=== PATIENT | female | born 1950 | race Caucasian/White ===

== ENCOUNTER → 2016-08-01 | Outpatient (CLI) | payer MEDICARE ==
[~2016-08-01] MED LIST: /ESOM40CA PO; ASTE137S; DOXY150C PO; MOME50SP; NICO21PAT EXT; PRAV40TA2 PO; PRED10TA2 PO; TYLE325T5 PO; VENTAER INH; ZANT150T PO; spiriva INH
--- NOTE | 2016-08-01 15:22 | REP ---
MRI BRAIN WITHOUT CONTRAST: HISTORY: Headache. A single punctate focus of increased signal intensity on T2-weighted images is present in the subcortical white matter of the left parietal lobe. There is no intraparenchymal hemorrhage, infarct, mass or midline shift. The ventricular system is normal in appearance. The sella turcica is partially empty. There is no extracerebral collection. Retention cysts are present in the maxillary sinus. A 4 mm cyst is present in the right side of the nasopharynx. IMPRESSION: There is a single punctate focus of increased signal intensity in the subcortical white matter of the left parietal lobe. This is a nonspecific finding. Signed by Sunny Vu MD 08/01/2016 03:29 P
== END ==
LOC: M RAD 13:08
PROVIDERS: ATTEND Family Medicine
DX: R51 Headache (principal); R42 Dizziness and giddiness

== ENCOUNTER → 2017-01-23 | Outpatient (CLI) | payer MEDICARE ==
--- NOTE | 2017-01-23 14:36 | REPMRS ---
Patient History The patient states she had a clinical breast exam in 01/2017. Patient is postmenopausal and has history of vulva cancer at age 64. Family history of breast cancer in mother at age 62. Benign stereotactic core biopsy of both breasts, 2001. Digital Woman Screen Mammo: January 23, 2017 - Exam #: [id number] Bilateral CC and MLO view(s) were taken. Technologist: Corinne Yanez, Technologist Prior study comparison: December 14, 2015, digital woman screen mammo performed at [facility] to [facility]. December 13, 2014, digital woman screen mammo performed at [facility]. September 23, 2013, digital woman screen mammo performed at [facility] to [facility]. FINDINGS: There are scattered fibroglandular densities. There has been no change in the appearance of the mammogram from the prior studies. There is a mild amount of scattered fibroglandular density which is fairly symmetric. There is no interval development of dominant mass, architectural distortion, or clustered microcalcification suggestive of malignancy. ASSESSMENT: BI-RADS/ACR category 1 mammogram. Negative. Recommendation Routine screening mammogram in 1 year (for women over age 40). This mammogram was interpreted with the aid of an FDA-approved computer-aided dectection system. Electronically Signed By: Tariq Gilbert MD 01/23/17 [id number]
== END ==
LOC: M WHC 13:31
PROVIDERS: ATTEND Nurse Practitioner Family
DX: Z12.31 Encounter for screening mammogram for malignant neoplasm of breast (principal); Z78.0 Asymptomatic menopausal state
CPT/HCPCS: G0202; G0463

== ENCOUNTER → 2017-06-08 | Outpatient (CLI) | payer MEDICARE | LOC: M RAD 13:09 | DX: I70.213 Atherosclerosis of native arteries of extremities with intermittent claudication, bilateral legs (principal); F17.218 Nicotine dependence, cigarettes, with other nicotine-induced disorders | CPT/HCPCS: 93979 ==

== ENCOUNTER → 2017-06-25 | Outpatient (CLI) | payer MEDICARE ==
[~2017-06-25] MED LIST changes: -/ESOM40CA PO; -ASTE137S; -DOXY150C PO; +HEPARIN 1,000 UNITS/ML 10ML VIAL (FOR RADIOLOGY& DIALYSIS ONLY) As Ordered; +ISOVUE-300 61% 50ML VIAL (Q9967) As Ordered; +LIDOCAINE 2% MDV 20 ML VIAL As Ordered; +MIDAZOLAM INJ 2 MG/2 ML VIAL (J2250) As Ordered; -MOME50SP; -NICO21PAT EXT; -PRAV40TA2 PO; -PRED10TA2 PO; +PROTAMINE SULF INJ 50 MG/5 ML VIAL (J2720) As Ordered; -TYLE325T5 PO; -VENTAER INH; -ZANT150T PO; +fentaNYL 100 MCG/2 ML INJECTION (J3010) As Ordered; -spiriva INH
== END | disposition home or self-care (01) ==
LOC: M IRPRO 07:44
DX: I70.213 Atherosclerosis of native arteries of extremities with intermittent claudication, bilateral legs (principal); I70.0 Atherosclerosis of aorta
CPT/HCPCS: 37221

== ENCOUNTER → 2017-08-07 | Outpatient (CLI) | payer MEDICARE | LOC: M RAD 07:23 | DX: I73.9 Peripheral vascular disease, unspecified (principal); Z95.820 Peripheral vascular angioplasty status with implants and grafts | CPT/HCPCS: 76775 ==

== ENCOUNTER 2017-08-27 09:57 | Day surgery (SDC) | payer MEDICARE ==
[2017-08-27] MEDS: PROPARACAINE 0.5% OPHTH SOL 15ML OS (10:15)
[2017-08-27] MEDS ORDERED: LIDOCAINE 1% MDV 20ML VIAL SQ (10:15)
[2017-08-27] MEDS: PHENYLEPHRINE 2.5% OPHTH SOL 2ML OS (10:20)
[2017-08-27] MEDS: TROPICAMIDE 1% OPHTH SOLN 2ML OS (10:25)
[2017-08-27] MEDS: OFLOXACIN 0.3 % (OCUFLOX) OPTH SOL 5ML OS (10:30)
[2017-08-27] MEDS ORDERED: MIDAZOLAM INJ 2 MG/2 ML VIAL (J2250) As Ordered (12:19)
[2017-08-27] MEDS ORDERED: fentaNYL 100 MCG/2 ML INJECTION (J3010) As Ordered (12:19)
[2017-08-27] MEDS ORDERED: TETRACAINE 0.5% OPHTH SOLN 4ML As Ordered ×2 (12:23→12:55)
[2017-08-27] MEDS: POVIDONE-IODINE 5% OPHTH PREP SOL 30ML As Ordered (12:56)
[2017-08-27] MEDS: DUOVISC (0.50ML VISCOAT/0.55ML PROVISC) OPHTH KIT As Ordered (12:56)
[2017-08-27] MEDS: BALANCED SALT IRRIGATION SOLUTION 500ML BAG (FOR OR EYE MACHINE) As Ordered (12:56)
[2017-08-27] MEDS: LIDOCAINE 0.75%/EPINEPHRINE 0.025% IN BSS 1ML SYR INTRACAMERAL (OR ONLY) As Ordered ×2 (12:57)
[2017-08-27] MEDS: CEFUROXIME 1MG/0.1ML INTRACAMERAL INJ As Ordered (12:57)
== END 2017-08-27 13:15 | disposition home or self-care (01) ==
LOC: M SDC 09:57
DX: H25.12 Age-related nuclear cataract, left eye (principal); I10 Essential (primary) hypertension; E78.5 Hyperlipidemia, unspecified; K21.9 Gastro-esophageal reflux disease without esophagitis; K22.70 Barrett's esophagus without dysplasia; J44.9 Chronic obstructive pulmonary disease, unspecified; F17.210 Nicotine dependence, cigarettes, uncomplicated; Z79.02 Long term (current) use of antithrombotics/antiplatelets; Z79.899 Other long term (current) drug therapy; Z88.8 Allergy status to other drugs, medicaments and biological substances
CPT/HCPCS: 66984

== ENCOUNTER → 2018-02-17 | Outpatient (REF) | payer MEDICARE ==
[2018-02-17 12:35] LABS: ANION GAP 7 MEQ/L (8-16); BLOOD UREA NITROGEN 14 MG/DL (7-18); CALCIUM LEVEL 9.4 MG/DL (8.8-10.2); CARBON DIOXIDE LEVEL 28 MEQ/L (21-32); CHLORIDE LEVEL 107 MEQ/L (98-107); CREATININE FOR GFR 0.72 MG/DL (0.55-1.30); GLOMERULAR FILTRATION RATE > 60.0 (>45); GLUCOSE, FASTING 115 MG/DL (70-100); POTASSIUM SERUM 4.4 MEQ/L (3.5-5.1); SODIUM LEVEL 142 MEQ/L (136-145)
== END ==
LOC: M SFHCPLAZ 09:16
DX: J45.901 Unspecified asthma with (acute) exacerbation (principal)
CPT/HCPCS: 80048

== ENCOUNTER → 2018-02-19 | Outpatient (CLI) | payer MEDICARE | LOC: M RAD 06:49 | DX: I73.9 Peripheral vascular disease, unspecified (principal) | CPT/HCPCS: 93925 ==

== ENCOUNTER 2018-02-20 20:13 | Emergency (ER) | payer MEDICARE ==
[2018-02-20 21:29] LABS: BASO % 0.2 % (0.0-1.0); EOS % 0.1 % (0.0-3.0); HEMATOCRIT 40.8 % (36.0-47.0); HEMOGLOBIN 13.7 g/dl (12.0-15.5); IMMATURE GRANULOCYTE % 0.5 % (0-3.0); LYMPH # 1.3 10^3/uL (1.5-4.5); LYMPH % 14.1 % (24.0-44.0); MEAN CORPUSCULAR HEMOGLOBIN 29.7 pg (27.0-33.0); MEAN CORPUSCULAR HGB CONC 33.6 g/dl (32.0-36.5); MEAN CORPUSCULAR VOLUME 88.3 fl (80.0-96.0); MONO # 0.6 10^3/uL (0.0-0.8); MONO % 6.6 % (0.0-5.0); NEUTROPHILS # 7.5 10^3/uL (1.8-7.7); NEUTROPHILS % 78.5 % (36.0-66.0); PLATELET COUNT, AUTOMATED 295 10^3/uL (150-450); RED BLOOD COUNT 4.62 10^6/uL (4.00-5.40); RED CELL DISTRIBUTION WIDTH 13.9 % (11.5-14.5); WHITE BLOOD COUNT 9.5 10^3/uL (4.0-10.0)
[2018-02-20] MEDS: IPRATROPIUM 0.5MG/ALBUTEROL 2.5MG INH SOL UD 3ML (DUONEB)(J7620) NEB ×4 (21:54→23:27)
[2018-02-20 21:55] LABS: INFLUENZA A AMPLIFICATION NEGATIVE (NEGATIVE); INFLUENZA B AMPLIFICATION NEGATIVE (NEGATIVE)
[2018-02-20 21:58] LABS: LACTIC ACID SEPSIS PROTOCOL 1.4 MMOL/L (0.4-2.0)
[2018-02-20 22:04] LABS: ALBUMIN 3.8 GM/DL (3.2-5.2); ALBUMIN/GLOBULIN RATIO 0.97 (1.00-1.93); ALKALINE PHOSPHATASE 66 U/L (45-117); ALT/SGPT 19 U/L (12-78); ANION GAP 7 MEQ/L (8-16); AST/SGOT 13 U/L (7-37); BILIRUBIN,DIRECT < 0.1 MG/DL (0.0-0.2); BILIRUBIN,TOTAL 0.3 MG/DL (0.2-1.0); BLOOD UREA NITROGEN 13 MG/DL (7-18); CALCIUM LEVEL 8.7 MG/DL (8.8-10.2); CARBON DIOXIDE LEVEL 27 MEQ/L (21-32); CHLORIDE LEVEL 108 MEQ/L (98-107); CPK CREATINE PHOSPHOKINASE 257 U/L (26-192); CREATININE FOR GFR 0.73 MG/DL (0.55-1.30); GLOMERULAR FILTRATION RATE > 60.0 (>45); GLUCOSE, FASTING 99 MG/DL (70-100); MB/CK RELATIVE INDEX 1.01 (< OR =4); NT-PRO BNP 132 PG/ML (<125); POTASSIUM SERUM 4.1 MEQ/L (3.5-5.1); SODIUM LEVEL 142 MEQ/L (136-145); THYROID STIMULATING HORMONE 0.715 uIU/ML (0.358-3.740); THYROXINE (T4) 11.7 UG/DL (4.5-12.0); TOTAL PROTEIN 7.7 GM/DL (6.4-8.2); TROPONIN I < 0.02 NG/ML (< 0.10)
[2018-02-20] MEDS: predniSONE 20 MG TAB PO (22:10)
[2018-02-20] MEDS: NORCO 5/325MG TABLET (BULK FOR ED) PO (23:26)
[2018-02-20] MEDS: guaiFENesin ER 600 MG TAB PO (23:26)
== END 2018-02-20 23:33 | disposition home or self-care (01) ==
LOC: M ED 20:13
DX: J44.1 Chronic obstructive pulmonary disease with (acute) exacerbation (principal); Z79.899 Other long term (current) drug therapy; Z88.8 Allergy status to other drugs, medicaments and biological substances; F17.210 Nicotine dependence, cigarettes, uncomplicated
CPT/HCPCS: 71046

== ENCOUNTER 2018-03-14 03:55 | Inpatient (IN) | payer MEDICARE ==
[2018-03-14 04:19] LABS: BASO # 0.1 10^3/uL (0.0-0.2); BASO % 0.6 % (0.0-1.0); EOS # 1.4 10^3/uL (0.0-0.50); EOS % 16.3 % (0.0-3.0); HEMATOCRIT 42.4 % (36.0-47.0); HEMOGLOBIN 14.2 g/dl (12.0-15.5); IMMATURE GRANULOCYTE % 0.5 % (0-3.0); LYMPH # 1.2 10^3/uL (1.5-4.5); LYMPH % 13.8 % (24.0-44.0); MEAN CORPUSCULAR HEMOGLOBIN 29.5 pg (27.0-33.0); MEAN CORPUSCULAR HGB CONC 33.5 g/dl (32.0-36.5); MEAN CORPUSCULAR VOLUME 88.1 fl (80.0-96.0); MONO # 0.5 10^3/uL (0.0-0.8); NEUTROPHILS # 5.5 10^3/uL (1.8-7.7); NEUTROPHILS % 62.8 % (36.0-66.0); PLATELET COUNT, AUTOMATED 312 10^3/uL (150-450); RED BLOOD COUNT 4.81 10^6/uL (4.00-5.40); RED CELL DISTRIBUTION WIDTH 13.7 % (11.5-14.5); VENOUS BASE EXCESS -2.9 (-2.0-2.0); VENOUS O2 SATURATION 94.2 % (60.0-80.0); VENOUS PARTIAL PRESSURE CO2 34.1 mmHg (38.0-50.0); VENOUS PARTIAL PRESSURE O2 70.6 mmHg (30.0-50.0); VENOUS PH 7.407 UNITS (7.330-7.430); WHITE BLOOD COUNT 8.8 10^3/uL (4.0-10.0)
[2018-03-14] MEDS: IPRATROPIUM 0.5MG/ALBUTEROL 2.5MG INH SOL UD 3ML (DUONEB)(J7620) NEB ×8 (04:31→20:00)
[2018-03-14] MEDS: dexameTHASONE 20 MG/5 ML VIAL (J1100) IV (04:31)
[2018-03-14] MEDS: IPRATROPIUM 0.02% SOLN 0.5MG/2.5 ML NEB INH (04:59)
[2018-03-14] MEDS: ALBUTEROL SULFATE 2.5 MG/0.5 ML INH NEB SOLN NEB (04:59)
[2018-03-14 05:01] LABS: ABG BASE EXCESS -0.8 (-2.0-2.0); ABG HCO3 23.7 MEQ/L (22.0-26.0); ABG O2 SATURATION 98.9 % (95.0-99.0); ABG PARTIAL PRESSURE CO2 38.9 mmHg (35.0-45.0); ABG PARTIAL PRESSURE O2 135.2 mmHg (75.0-100.0); ABG STANDARD HCO3 23.9 MEQ/L (22.0-26.0); ABG TOTAL CO2 24.9 MEQ/L (23.0-31.0); ABG pH (ARTERIAL) 7.403 UNITS (7.350-7.450)
[2018-03-14 05:17] LABS: ANION GAP 6 MEQ/L (8-16); BLOOD UREA NITROGEN 12 MG/DL (7-18); CALCIUM LEVEL 9.3 MG/DL (8.8-10.2); CARBON DIOXIDE LEVEL 27 MEQ/L (21-32); CHLORIDE LEVEL 106 MEQ/L (98-107); CPK CREATINE PHOSPHOKINASE 172 U/L (26-192); CREATININE FOR GFR 0.69 MG/DL (0.55-1.30); GLOMERULAR FILTRATION RATE > 60.0 (>45); GLUCOSE, FASTING 129 MG/DL (70-100); MB/CK RELATIVE INDEX 2.09 (< OR =4); POTASSIUM SERUM 4.5 MEQ/L (3.5-5.1); SODIUM LEVEL 139 MEQ/L (136-145); TROPONIN I < 0.02 NG/ML (< 0.10)
[2018-03-14] MEDS ORDERED: ONDANSETRON 4MG/2ML VIAL (J2405) IV (06:15)
[2018-03-14] MEDS ORDERED: BISACODYL 10 MG SUPP PR (06:15)
[2018-03-14] MEDS ORDERED: ISOVUE-370 76% 100ML VIAL (Q9967) As Ordered (06:26)
[2018-03-14] MEDS: HEPARIN SOD (PORCINE) 5000 UNITS/ML VIAL SC ×3 (06:32→21:28)
[2018-03-14] MEDS: AZITHROMYCIN INJ 500 MG, VIAL MATE ADAPTER 1 EACH in D5W 250 ML IV (06:32)
[2018-03-14] MEDS: methylPREDNISolone INJ 125 MG/2 ML VIAL (J2930) IV ×3 (06:33→21:28)
[2018-03-14 06:57] LABS: BASO % 0.3 % (0.0-1.0); EOS # 0.7 10^3/uL (0.0-0.50); HEMATOCRIT 41.2 % (36.0-47.0); HEMOGLOBIN 13.9 g/dl (12.0-15.5); IMMATURE GRANULOCYTE % 0.3 % (0-3.0); LYMPH # 0.6 10^3/uL (1.5-4.5); LYMPH % 5.9 % (24.0-44.0); MEAN CORPUSCULAR HEMOGLOBIN 29.4 pg (27.0-33.0); MEAN CORPUSCULAR HGB CONC 33.7 g/dl (32.0-36.5); MEAN CORPUSCULAR VOLUME 87.1 fl (80.0-96.0); MONO # 0.2 10^3/uL (0.0-0.8); MONO % 1.5 % (0.0-5.0); NEUTROPHILS # 8.3 10^3/uL (1.8-7.7); PLATELET COUNT, AUTOMATED 305 10^3/uL (150-450); RED BLOOD COUNT 4.73 10^6/uL (4.00-5.40); RED CELL DISTRIBUTION WIDTH 13.7 % (11.5-14.5); WHITE BLOOD COUNT 9.8 10^3/uL (4.0-10.0)
[2018-03-14 07:16] LABS: ERYTHROCYTE SEDIMENTATION RATE 50 mm/hr (0-30)
[2018-03-14 07:28] LABS: CPK CREATINE PHOSPHOKINASE 157 U/L (26-192); MB/CK RELATIVE INDEX 2.23 (< OR =4); TROPONIN I < 0.02 NG/ML (< 0.10)
[2018-03-14 07:32] LABS: ALBUMIN 4.1 GM/DL (3.2-5.2); ALBUMIN/GLOBULIN RATIO 1.21 (1.00-1.93); ALKALINE PHOSPHATASE 59 U/L (45-117); ALT/SGPT 21 U/L (12-78); ANION GAP 9 MEQ/L (8-16); AST/SGOT 12 U/L (7-37); BILIRUBIN,TOTAL 0.5 MG/DL (0.2-1.0); BLOOD UREA NITROGEN 12 MG/DL (7-18); CALCIUM LEVEL 9.3 MG/DL (8.8-10.2); CARBON DIOXIDE LEVEL 22 MEQ/L (21-32); CHLORIDE LEVEL 106 MEQ/L (98-107); CHOLESTEROL LEVEL 266 MG/DL (<200); CHOLESTEROL RISK RATIO 3.546 (<5); CREATININE FOR GFR 0.63 MG/DL (0.55-1.30); GLOMERULAR FILTRATION RATE > 60.0 (>45); GLUCOSE, FASTING 137 MG/DL (70-100); HDL CHOLESTEROL 75 MG/DL (>40); LDL CHOLESTEROL 171 MG/DL (<100); NON-HDL-C 191 MG/DL; POTASSIUM SERUM 4.3 MEQ/L (3.5-5.1); SODIUM LEVEL 137 MEQ/L (136-145); THYROID STIMULATING HORMONE 0.601 uIU/ML (0.358-3.740); TOTAL PROTEIN 7.5 GM/DL (6.4-8.2); TRIGLYCERIDES LEVEL 99 MG/DL (<150)
[2018-03-14 07:33] LABS: INFLUENZA A AMPLIFICATION NEGATIVE (NEGATIVE); INFLUENZA B AMPLIFICATION NEGATIVE (NEGATIVE)
[2018-03-14] MEDS: SYMBICORT 160/4.5MCG INHALER 6GM INH ×2 (08:50→20:41)
[2018-03-14] MEDS: PANTOPRAZOLE 40MG TAB (PROTONIX) PO (09:50)
[2018-03-14] MEDS ORDERED: SLF 3 ML SYR IV (10:00)
[2018-03-14] MEDS: SLF 3 ML SYR IV ×2 (13:48→21:28)
[2018-03-15] MEDS: IPRATROPIUM 0.5MG/ALBUTEROL 2.5MG INH SOL UD 3ML (DUONEB)(J7620) NEB ×4 (01:48→20:00)
[2018-03-15] MEDS: SLF 3 ML SYR IV ×3 (04:56→21:09)
[2018-03-15 05:21] LABS: HEMATOCRIT 41.1 % (36.0-47.0); HEMOGLOBIN 13.1 g/dl (12.0-15.5); MEAN CORPUSCULAR HEMOGLOBIN 28.7 pg (27.0-33.0); MEAN CORPUSCULAR HGB CONC 31.9 g/dl (32.0-36.5); MEAN CORPUSCULAR VOLUME 90.1 fl (80.0-96.0); PLATELET COUNT, AUTOMATED 335 10^3/uL (150-450); RED BLOOD COUNT 4.56 10^6/uL (4.00-5.40); RED CELL DISTRIBUTION WIDTH 13.6 % (11.5-14.5); WHITE BLOOD COUNT 9.9 10^3/uL (4.0-10.0)
[2018-03-15] MEDS: AZITHROMYCIN INJ 500 MG, VIAL MATE ADAPTER 1 EACH in D5W 250 ML IV (05:22)
[2018-03-15] MEDS: HEPARIN SOD (PORCINE) 5000 UNITS/ML VIAL SC ×3 (05:22→21:07)
[2018-03-15] MEDS: methylPREDNISolone INJ 125 MG/2 ML VIAL (J2930) IV ×3 (05:22→21:06)
[2018-03-15 05:53] LABS: ANION GAP 9 MEQ/L (8-16); BLOOD UREA NITROGEN 17 MG/DL (7-18); CALCIUM LEVEL 9.4 MG/DL (8.8-10.2); CARBON DIOXIDE LEVEL 26 MEQ/L (21-32); CHLORIDE LEVEL 104 MEQ/L (98-107); CREATININE FOR GFR 0.98 MG/DL (0.55-1.30); GLOMERULAR FILTRATION RATE > 60.0 (>45); GLUCOSE, FASTING 159 MG/DL (70-100); POTASSIUM SERUM 3.9 MEQ/L (3.5-5.1); SODIUM LEVEL 139 MEQ/L (136-145)
[2018-03-15] MEDS: ACETAMINOPHEN TAB 650MG DOSE (2X325MG) PO ×2 (06:42→17:53)
[2018-03-15] MEDS: PANTOPRAZOLE 40MG TAB (PROTONIX) PO (08:13)
[2018-03-15] MEDS: SYMBICORT 160/4.5MCG INHALER 6GM INH ×2 (08:24→21:00)
[2018-03-15] MEDS: guaiFENesin ER 600 MG TAB PO (21:06)
[2018-03-15] MEDS: NICOTINE 7 MG/24 HR TRANSDERMAL TD (21:08)
[2018-03-16] MEDS: IPRATROPIUM 0.5MG/ALBUTEROL 2.5MG INH SOL UD 3ML (DUONEB)(J7620) NEB ×4 (02:00→19:54)
[2018-03-16] MEDS: HEPARIN SOD (PORCINE) 5000 UNITS/ML VIAL SC ×3 (05:35→21:16)
[2018-03-16] MEDS: ACETAMINOPHEN TAB 650MG DOSE (2X325MG) PO ×2 (05:35→19:58)
[2018-03-16] MEDS: methylPREDNISolone INJ 125 MG/2 ML VIAL (J2930) IV ×3 (05:36→21:16)
[2018-03-16] MEDS: AZITHROMYCIN INJ 500 MG, VIAL MATE ADAPTER 1 EACH in D5W 250 ML IV (05:36)
[2018-03-16] MEDS: SLF 3 ML SYR IV ×3 (05:36→21:16)
[2018-03-16] MEDS: SYMBICORT 160/4.5MCG INHALER 6GM INH ×2 (05:59→19:54)
[2018-03-16] MEDS: guaiFENesin ER 600 MG TAB PO ×2 (08:37→19:58)
[2018-03-16] MEDS: PANTOPRAZOLE 40MG TAB (PROTONIX) PO (08:37)
[2018-03-16] MEDS: PREVNAR 13 VACCINE SYRINGE (CPT CODE:90670) IM (08:38)
[2018-03-16] MEDS: NICOTINE 7 MG/24 HR TRANSDERMAL TD (19:58)
[2018-03-17] MEDS: IPRATROPIUM 0.5MG/ALBUTEROL 2.5MG INH SOL UD 3ML (DUONEB)(J7620) NEB ×4 (01:05→13:12)
[2018-03-17] MEDS: ACETAMINOPHEN TAB 650MG DOSE (2X325MG) PO ×2 (04:00→09:29)
[2018-03-17] MEDS: AZITHROMYCIN INJ 500 MG, VIAL MATE ADAPTER 1 EACH in D5W 250 ML IV (05:19)
[2018-03-17] MEDS: SLF 3 ML SYR IV (05:20)
[2018-03-17] MEDS: HEPARIN SOD (PORCINE) 5000 UNITS/ML VIAL SC (05:20)
[2018-03-17] MEDS: methylPREDNISolone INJ 125 MG/2 ML VIAL (J2930) IV (05:20)
[2018-03-17] MEDS: SYMBICORT 160/4.5MCG INHALER 6GM INH (07:48)
[2018-03-17] MEDS: guaiFENesin ER 600 MG TAB PO (09:29)
[2018-03-17] MEDS: PANTOPRAZOLE 40MG TAB (PROTONIX) PO (09:29)
== END 2018-03-17 13:55 | disposition home or self-care (01) | DRG 192 ==
LOC: M PCU 03-17 12:59 → M ED 03:55 → M ED INP 06:11 → M PCU 09:41
DX: J44.1 Chronic obstructive pulmonary disease with (acute) exacerbation (principal); K22.70 Barrett's esophagus without dysplasia; F17.210 Nicotine dependence, cigarettes, uncomplicated; M51.36 Other intervertebral disc degeneration, lumbar region; E78.5 Hyperlipidemia, unspecified; Z99.81 Dependence on supplemental oxygen; Z79.899 Other long term (current) drug therapy; Z88.8 Allergy status to other drugs, medicaments and biological substances

== ENCOUNTER → 2018-04-05 | Outpatient (CLI) | payer MEDICARE ==
[2018-04-05 07:43] LABS: CHOLESTEROL LEVEL 226 MG/DL (<200); CHOLESTEROL RISK RATIO 3.373 (<5); HDL CHOLESTEROL 67 MG/DL (>40); LDL CHOLESTEROL 129 MG/DL (<100); NON-HDL-C 159 MG/DL; TRIGLYCERIDES LEVEL 152 MG/DL (<150)
[2018-04-05 10:34] LABS: ESTIMATED AVERAGE GLUCOSE 148 MG/DL (60-110); HEMOGLOBIN A1c 6.8 %
== END ==
LOC: M LAB 06:39
DX: Z13.1 Encounter for screening for diabetes mellitus (principal); E78.2 Mixed hyperlipidemia; Z79.899 Other long term (current) drug therapy
CPT/HCPCS: 83036

== ENCOUNTER → 2018-04-19 | Outpatient (CLI) | payer MEDICARE ==
[2018-04-19 10:07] LABS: BASO % 0.4 % (0.0-1.0); EOS # 0.1 10^3/uL (0.0-0.50); EOS % 0.9 % (0.0-3.0); HEMOGLOBIN 13.9 g/dl (12.0-15.5); IMMATURE GRANULOCYTE % 0.5 % (0-3.0); LYMPH # 1.6 10^3/uL (1.5-4.5); LYMPH % 29.7 % (24.0-44.0); MEAN CORPUSCULAR HEMOGLOBIN 29.5 pg (27.0-33.0); MEAN CORPUSCULAR HGB CONC 33.1 g/dl (32.0-36.5); MEAN CORPUSCULAR VOLUME 89.2 fl (80.0-96.0); MONO # 0.5 10^3/uL (0.0-0.8); MONO % 8.7 % (0.0-5.0); NEUTROPHILS # 3.3 10^3/uL (1.8-7.7); NEUTROPHILS % 59.8 % (36.0-66.0); PLATELET COUNT, AUTOMATED 304 10^3/uL (150-450); RED BLOOD COUNT 4.71 10^6/uL (4.00-5.40); RED CELL DISTRIBUTION WIDTH 14.5 % (11.5-14.5); WHITE BLOOD COUNT 5.5 10^3/uL (4.0-10.0)
[2018-04-19 10:33] LABS: ALBUMIN 3.8 GM/DL (3.2-5.2); ALBUMIN/GLOBULIN RATIO 1.19 (1.00-1.93); ALKALINE PHOSPHATASE 57 U/L (45-117); ALT/SGPT 19 U/L (12-78); ANION GAP 6 MEQ/L (8-16); AST/SGOT 15 U/L (7-37); BILIRUBIN,TOTAL 0.6 MG/DL (0.2-1.0); BLOOD UREA NITROGEN 14 MG/DL (7-18); CALCIUM LEVEL 8.8 MG/DL (8.8-10.2); CARBON DIOXIDE LEVEL 29 MEQ/L (21-32); CHLORIDE LEVEL 107 MEQ/L (98-107); CREATININE FOR GFR 0.71 MG/DL (0.55-1.30); GLOMERULAR FILTRATION RATE > 60.0 (>45); GLUCOSE, FASTING 96 MG/DL (70-100); POTASSIUM SERUM 4.3 MEQ/L (3.5-5.1); SODIUM LEVEL 142 MEQ/L (136-145)
[2018-04-19 10:36] LABS: CREATININE, URINE 25.6 MG/DL; MALB URINE SIEMENS 6.4 MG/L
== END ==
LOC: M LAB 09:21
DX: Z01.818 Encounter for other preprocedural examination (principal); M20.12 Hallux valgus (acquired), left foot; M79.672 Pain in left foot; E11.9 Type 2 diabetes mellitus without complications
CPT/HCPCS: 80053

== ENCOUNTER → 2018-04-19 | Outpatient (CLI) | payer MEDICARE | LOC: M LAB 09:22 | DX: E11.9 Type 2 diabetes mellitus without complications (principal) ==

== ENCOUNTER 2018-04-30 05:46 | Day surgery (SDC) | payer MEDICARE ==
[2018-04-30] MEDS ORDERED: LIDOCAINE 1% MDV 20ML VIAL SQ (06:00)
[2018-04-30] MEDS: LR 1,000 ML IV (06:26)
[2018-04-30] MEDS ORDERED: LIDOCAINE 2% INJ 100 MG/5 ML SDV (FOR ANES.) As Ordered (07:18)
[2018-04-30] MEDS ORDERED: ONDANSETRON 4MG/2ML VIAL (J2405) As Ordered (07:19)
[2018-04-30] MEDS ORDERED: KETOROLAC 60 MG/2 ML VIAL (J1885) As Ordered (07:19)
[2018-04-30] MEDS ORDERED: fentaNYL 100 MCG/2 ML INJECTION (J3010) As Ordered (07:19)
[2018-04-30] MEDS ORDERED: PROPOFOL 200 MG/20 ML VIAL As Ordered (07:19)
[2018-04-30] MEDS ORDERED: MIDAZOLAM INJ 2 MG/2 ML VIAL (J2250) As Ordered (07:19)
[2018-04-30] MEDS ORDERED: dexameTHASONE 4 MG/ML 1ML VIAL (J1100) As Ordered ×2 (07:19→07:22)
[2018-04-30] MEDS ORDERED: PHENYLephrine HCL 500 MCG/5 ML (100MCG/ML) SYRINGE (J2370) As Ordered (07:40)
[2018-04-30] MEDS ORDERED: KETAMINE HCL 200 MG/20 ML VIAL As Ordered (07:56)
[2018-04-30] MEDS ORDERED: ePHEDrine SULFATE 25 MG/5 ML(5MG/ML) SYRINGE As Ordered (08:07)
[2018-04-30] MEDS: BUPIVACAINE HCL 0.5% 30 ML VIAL As Ordered (08:20)
[2018-04-30] MEDS: BACITRACIN PWD 50,000 UNITS VIAL As Ordered (08:21)
[2018-04-30] MEDS: LIDOCAINE 2% MDV 20 ML VIAL As Ordered (08:22)
[2018-04-30] MEDS: dexameTHASONE 4 MG/ML 1ML VIAL (J1100) As Ordered (08:22)
[2018-04-30] MEDS: NEOSPORIN GU IRRIG 20 ML VIAL As Ordered (08:23)
== END 2018-04-30 10:52 | disposition home or self-care (01) ==
LOC: M SDC 05:46
DX: M20.12 Hallux valgus (acquired), left foot (principal); I10 Essential (primary) hypertension; E78.5 Hyperlipidemia, unspecified; K21.9 Gastro-esophageal reflux disease without esophagitis; K22.70 Barrett's esophagus without dysplasia; J44.9 Chronic obstructive pulmonary disease, unspecified; F17.210 Nicotine dependence, cigarettes, uncomplicated; Z79.899 Other long term (current) drug therapy
CPT/HCPCS: 28296

== ENCOUNTER → 2018-05-28 | Outpatient (CLI) | payer MEDICARE ==
[~2018-05-28] MED LIST changes: +/ESOM40CA PO; +ASTE137S; +AZIT500T2 PO; +CRES40TA PO; +DOXY150C PO; -HEPARIN 1,000 UNITS/ML 10ML VIAL (FOR RADIOLOGY& DIALYSIS ONLY) As Ordered; +IPRA0.00 IN; +IPRA0.00 INH; -ISOVUE-300 61% 50ML VIAL (Q9967) As Ordered; +LEVOTAB10 PO; -LIDOCAINE 2% MDV 20 ML VIAL As Ordered; -MIDAZOLAM INJ 2 MG/2 ML VIAL (J2250) As Ordered; +MOME50SP; +MUCI600T31 PO; +MUCI600T37 PO; +NEXI40CA PO; +NICO21PAT EXT; +NORCOTAB PO; +PANT40TA3 PO; +PRAV40TA2 PO; +PRED10TA2 PO; +PRED20TA PO; -PROTAMINE SULF INJ 50 MG/5 ML VIAL (J2720) As Ordered; +SIMV20TA2 PO; +SPIR12.9 INH; +SYMB16INH INH; +TYLE325T5 PO; +TYLE500T78 PO; +VENTAER INH; +VITA-110 PO; +VITA500T PO; +ZANT150T PO; -fentaNYL 100 MCG/2 ML INJECTION (J3010) As Ordered; +spiriva INH
--- NOTE | 2018-05-28 12:22 | REPMRS ---
Patient History The patient states she had a clinical breast exam in 05/2018. Patient is postmenopausal and has history of vulvar cancer at age 64. Family history of breast cancer at age 62 in mother. Benign stereotactic core biopsy of both breasts, 2001. No Hormone Replacement Therapy Digital Woman Screen Mammo: May 28, 2018 - Exam #: [id number] Bilateral CC and MLO view(s) were taken. Technologist: Corinne Yanez, Technologist Prior study comparison: January 23, 2017, digital woman screen mammo performed at [facility]. December 14, 2015, digital woman screen mammo performed at [facility]. December 13, 2014, digital woman screen mammo performed at [email or web address]. FINDINGS: There are scattered fibroglandular densities. There has been no change in the appearance of the mammogram from the prior studies. There is a mild amount of scattered fibroglandular density which is fairly symmetric. There is no interval development of dominant mass, architectural distortion, or clustered microcalcification suggestive of malignancy. 3-D tomosynthesis shows no additional findings. Assessment: BI-RADS/ACR category 1 mammogram. Negative. Recommendation Routine screening mammogram of both breasts in 1 year (for women over age 40). This patient's Lifetime Breast Cancer RIsk is estimated at 7.7 %. This mammogram was interpreted with the aid of an FDA-approved computer-aided dectection system. Electronically Signed By: Tariq Gilbert MD 05/28/18 1770
--- NOTE | 2018-05-31 15:24 | DEXA ---
AP SPINE L1 - L4 1.071 -1.0 0.6 LT FEMUR TOTAL 0.772 -1.9 -0.6 LT NECK 0.721 -2.3 -0.8 RT FEMUR TOTAL 0.769 -1.9 -0.7 RT NECK 0.718 -2.3 -0.8 TOTAL BODY TOTAL OTHER COMMENTS: There is low bone density of the spine and hips. FOLLOW-UP: Recommendation for the next bone density exam: 2 years. MIRA
== END ==
LOC: M WHC 08:22
PROVIDERS: ATTEND Nurse Practitioner Family
DX: Z12.31 Encounter for screening mammogram for malignant neoplasm of breast (principal); N95.9 Unspecified menopausal and perimenopausal disorder; Z78.0 Asymptomatic menopausal state; Z85.44 Personal history of malignant neoplasm of other female genital organs; Z86.018 Personal history of other benign neoplasm; Z80.3 Family history of malignant neoplasm of breast

== ENCOUNTER → 2018-06-15 | Outpatient (CLI) | payer MEDICARE ==
--- NOTE | 2018-06-15 10:12 | REP ---
CT CHEST WITHOUT IV CONTRAST: CT chest performed without IV contrast, with sagittal and coronal reconstruction images performed. COMPARISON: 03/14/2018 and 02/24/2013. The ground glass infiltrate in the right middle lobe appears to have resolved. Once again, there are a few tiny scattered calcified granulomas bilaterally. Linear fibroatelectatic change is seen in both lower lobes along the diaphragms. No suspicious nodular opacities are seen bilaterally. The heart is normal in size. There is no pleural or pericardial effusion. No mediastinal adenopathy is seen. There is no axillary adenopathy. There are moderate atherosclerotic calcifications of the thoracic aorta without aneurysm. The visualized upper abdominal structures are grossly unremarkable. There are degenerative changes of the spine. IMPRESSION: Hazy ground glass infiltrate in the right middle lobe has resolved. No new infiltrate or suspicious nodule. There are again a few scattered tiny calcified granulomas bilaterally. There is linear fibroatelectatic change in both lower lobes inferiorly. Electronically Signed by Todd Felix MD 06/16/2018 01:31 P
== END ==
LOC: M RAD 08:58
PROVIDERS: ATTEND Internal Medicine Pulmonary Disease
DX: R91.8 Other nonspecific abnormal finding of lung field (principal)

== ENCOUNTER → 2018-06-23 | Outpatient (REF) | payer MEDICARE ==
[2018-06-23 12:06] LABS: HEMOGLOBIN A1c 6.7 %
== END ==
LOC: M SFHCPLAZ 09:34
PROVIDERS: ATTEND Family Medicine
DX: E11.9 Type 2 diabetes mellitus without complications (principal)

== ENCOUNTER → 2018-10-05 | Outpatient (CLI) | payer MEDICARE ==
[~2018-10-05] MED LIST changes: -/ESOM40CA PO; +HYDR-3715 PO; +NEXI1CAP3 PO; +NICO21DI3 EXT; -NICO21PAT EXT; -NORCOTAB PO
[2018-10-05 11:03] LABS: HEMOGLOBIN A1c 6.3 %
[2018-10-05 11:17] LABS: CHOLESTEROL RISK RATIO 2.955 (<5); THYROID STIMULATING HORMONE 0.519 uIU/ML (0.358-3.740)
[2018-10-05 11:17] LABS: CREATININE, URINE 21.3 MG/DL; MALB URINE SIEMENS 15.7 MG/L; MAU/CREAT RATIO 73.7 MCG/MG (0.0-30.0)
== END ==
LOC: M LAB 09:52
PROVIDERS: ATTEND Student in an Organized Health Care Education/Training Program
DX: E11.9 Type 2 diabetes mellitus without complications (principal); E03.9 Hypothyroidism, unspecified

== ENCOUNTER → 2018-11-12 | Outpatient (CLI) | payer MEDICARE ==
[2018-11-12 06:48] LABS: BASO % 0.5 % (0.0-1.0); EOS # 0.6 10^3/uL (0.0-0.50); EOS % 6.8 % (0.0-3.0); HEMOGLOBIN 13.8 g/dl (12.0-15.5); LYMPH # 1.2 10^3/uL (1.5-4.5); LYMPH % 15.1 % (24.0-44.0); MEAN CORPUSCULAR HEMOGLOBIN 30.5 pg (27.0-33.0); MEAN CORPUSCULAR HGB CONC 32.9 g/dl (32.0-36.5); MEAN CORPUSCULAR VOLUME 92.7 fl (80.0-96.0); MONO # 0.5 10^3/uL (0.0-0.8); MONO % 6.4 % (0.0-5.0); NEUTROPHILS # 5.7 10^3/uL (1.8-7.7); PLATELET COUNT, AUTOMATED 220 10^3/uL (150-450); RED BLOOD COUNT 4.53 10^6/uL (4.00-5.40); WHITE BLOOD COUNT 8.1 10^3/uL (4.0-10.0)
[2018-11-12 07:19] LABS: ALBUMIN 3.8 GM/DL (3.2-5.2); ALT/SGPT 18 U/L (12-78); BILIRUBIN,TOTAL 0.6 MG/DL (0.2-1.0); BLOOD UREA NITROGEN 7 MG/DL (7-18); CALCIUM LEVEL 8.7 MG/DL (8.8-10.2); CARBON DIOXIDE LEVEL 25 MEQ/L (21-32); CHLORIDE LEVEL 112 MEQ/L (98-107); CREATININE FOR GFR 0.72 MG/DL (0.55-1.30); GLOMERULAR FILTRATION RATE > 60.0 (>45); GLUCOSE, FASTING 122 MG/DL (70-100); POTASSIUM SERUM 3.6 MEQ/L (3.5-5.1); SODIUM LEVEL 145 MEQ/L (136-145); TOTAL PROTEIN 6.9 GM/DL (6.4-8.2)
== END ==
LOC: M LAB 06:29
PROVIDERS: ATTEND Family Medicine
DX: F32.9 Major depressive disorder, single episode, unspecified (principal)

== ENCOUNTER → 2018-12-28 | Outpatient (CLI) | payer MEDICARE ==
[2018-12-28 08:41] LABS: CHOLESTEROL RISK RATIO 2.419 (<5)
[2018-12-28 08:48] LABS: CREATININE, URINE 39.5 MG/DL; MALB URINE SIEMENS 18.8 MG/L; MAU/CREAT RATIO 47.5 MCG/MG (0.0-30.0)
== END ==
LOC: M LAB 07:33
PROVIDERS: ATTEND Student in an Organized Health Care Education/Training Program
DX: E03.9 Hypothyroidism, unspecified (principal); E11.9 Type 2 diabetes mellitus without complications

== ENCOUNTER → 2019-05-06 | Outpatient (CLI) | payer MEDICARE ==
[~2019-05-06] MED LIST changes: -AZIT500T2 PO; +AZIT500T5 PO; -SIMV20TA2 PO; +SIMV20TA22 PO
--- NOTE | 2019-05-06 15:25 | REP ---
BILATERAL UPPER EXTREMITY DUPLEX DOPPLER ARTERIAL ULTRASOUND: Real-time compression and duplex Doppler interrogation of bilateral upper arterial systems is performed. There is normal direction of flow and normal flow velocities in the arterial system of the right upper extremity. Normal triphasic waveforms are seen throughout. On the left, there is reversal of flow in the vertebral artery. Slow flow velocities are seen throughout the left upper extremity arterial system including subclavian, axillary, brachial arteries, as well as radial and ulnar arteries, with diffuse monophasic waveforms. Findings are consistent with high-grade stenosis or occlusion of the proximal left subclavian artery. PEAK SYSTOLIC VELOCITY RIGHT LEFT Common carotid artery 91 cm/s 110 cm/s Vertebral 47 cm/s Reversed 14 cm/s Subclavian 215 41 Axillary 133 44 Brachial 165 55 Radial 73 22 Ulnar 66 45 Please note the left radial artery is extremely small. IMPRESSION: Reversal of flow in the left vertebral artery with slow flow in the left subclavian, axillary, brachial, radial, and ulnar arteries and diffuse monophasic waveforms. Findings are consistent with subclavian steal syndrome and either occlusion or high grade stenosis at the very proximal left subclavian artery. Electronically Signed by Todd Felix MD 05/06/2019 05:18 P
== END ==
LOC: M RAD 13:03
PROVIDERS: ATTEND Student in an Organized Health Care Education/Training Program
DX: I73.9 Peripheral vascular disease, unspecified (principal)

== ENCOUNTER → 2019-05-17 | Outpatient (POV) | payer MEDICARE ==
[~2019-05-17] VITALS: Ht 160 cm; Wt 75.0 kg
[2019-05-17 15:19] VITALS: BP 131/60
--- NOTE | 2019-05-18 11:53 | IRCOV ---
[facility] IR Consult Office Visit IR Consult Office Visit DATE: May 17, 2019 REASON FOR CONSULTATION/CHIEF COMPLAINT: Subclavian steal syndrome. 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 Patient first noticed a blood pressure difference in the 2 arms, left arm lower blood pressure then right arm, at home. Patient has noticed left arm fatigues easily when she is carrying a bag or doing any over arm activities. She reports the arm falls asleep at night and she has to shake it to get feeling back in the arm. Denies any dizziness, syncope or vertigo. She has suffered with tinnitus for several years. No prior strokes. No heart attacks. She does suffer with diabetes. ALLERGIES: Please see below. HOME MEDICATIONS: Please see below. PAST MEDICAL HISTORY: Peripheral vascular disease COPD Arthritis Hyperlipidemia Vulva cancer Hypothyroidism Diabetes PAST SURGICAL HISTORY: Iliac stenting Left arm fracture Total hysterectomy Cataract surgery FAMILY HISTORY: Noncontributory. SOCIAL HISTORY: Current smoker. No alcohol or drugs. REVIEW OF SYSTEMS: Otherwise negative PHYSICAL EXAMINATION: VITAL SIGNS: Please see below. GENERAL APPEARANCE: Appears well. Comfortable at rest. HEENT: No scleral icterus. RESPIRATORY: Scattered wheezes bilaterally. CARDIOVASCULAR: Normal rate. ABDOMEN: Soft nontender. EXTREMITIES: Left arm: Atrophic compared to right arm. Sensation intact. Motor 5 out of 5. No neurologic symptoms with prolonged abduction of the left arm. Adson test negative. Weak radial pulse. Right arm: Normal radial pulse. Motor sensation intact. No weakness. NEUROLOGICAL: Alert and oriented. PSYCHIATRIC: Appropriate to circumstance. LABORATORY DATA: November 2018 hemoglobin 13.8 hematocrit 42 WBC 8.1 platelets 220 sodium 145 potassium 3.6 BUN 7 creatinine 0.72 GFR greater than 60 Imaging: I personally reviewed the vascular ultrasound performed April 2019. This demonstrates parvus tardus waveform in the left subclavian artery, and monophasic beyond. Right subclavian artery appears unremarkable. ASSESSMENT/PLAN: 68-year-old female known arteriopath presents with left-sided subclavian steal. I agree she would benefit from a diagnostic angiogram and/or intervention at the same time if possible. We'll schedule her for this procedure. I spent 30 minutes in consultation with the patient. Thank you for this referral. CcDr. Sheri flores Allergies Coded Allergies: MS - Naproxen (Verified Allergy, Intermediate, rash, 04/16/18) Home Medications Scheduled Levocetirizine Dihydrochloride (Levocetirizine Dihydrochloride), 5 MG PO QPM, ( Reported) Pantoprazole Sodium (Pantoprazole Sodium), 40 MG PO DAILY, (Reported) Simvastatin (Simvastatin), 20 MG PO QPM, (Reported) Tiotropium [place] (Spiriva Respimat), 2 INHALATION INH DAILY, (Reported) Scheduled PRN Albuterol Sulfate (Ventolin Hfa), 2 PUFF INH Q4-6HP PRN for wheezing, (Reported) Ipratropium/Albuterol Sulfate (Iprat-Albut 0.5-3(2.5) mg/3 ml), 1 SUJEY INH Q6H PRN for WHEEZING VS, I&O, 24H, Fishbone Vital Signs/I&O Vital Signs Date Time Temp Pulse Resp B/P (MAP) Pulse Ox O2 Delivery O2 Flow Rate FiO2 05/17/19 15:19 97.6 89 18 131/60 (83) 95 CAIN HA MD May 18, 2019 11:53
== END ==
LOC: M IRPOV 15:04
PROVIDERS: ATTEND Radiology Diagnostic Radiology
DX: G45.8 Other transient cerebral ischemic attacks and related syndromes (principal); E11.9 Type 2 diabetes mellitus without complications; E03.9 Hypothyroidism, unspecified; I73.9 Peripheral vascular disease, unspecified; J44.9 Chronic obstructive pulmonary disease, unspecified; M12.9 Arthropathy, unspecified; E78.5 Hyperlipidemia, unspecified; F17.210 Nicotine dependence, cigarettes, uncomplicated; Z85.44 Personal history of malignant neoplasm of other female genital organs; Z90.710 Acquired absence of both cervix and uterus; Z96.1 Presence of intraocular lens; Z87.81 Personal history of (healed) traumatic fracture

== ENCOUNTER → 2019-05-26 | Outpatient (CLI) | payer MEDICARE ==
[~2019-05-26] MED LIST changes: +ASPI81TA26 PO; +HEPARIN 1,000 UNITS/ML 10ML VIAL (FOR RADIOLOGY& DIALYSIS ONLY) As Ordered ONE; +ISOVUE-300 61% 50ML VIAL (Q9967) As Ordered ONE; +LIDOCAINE 1% MDV 20ML VIAL As Ordered ONE; +LISI-542 PO; +METF500T13 PO; +MIDAZOLAM INJ 2 MG/2 ML VIAL (J2250) As Ordered ONE; +diphenhydrAMINE INJ 50MG/ML VIAL (J1200) As Ordered ONE; +fentaNYL 100 MCG/2 ML INJECTION (J3010) As Ordered ONE
[2019-05-26 07:40] LABS: HEMATOCRIT 41.4 % (36.0-47.0); HEMOGLOBIN 13.1 g/dl (12.0-15.5); MEAN CORPUSCULAR HGB CONC 31.6 g/dl (32.0-36.5); MEAN CORPUSCULAR VOLUME 91.6 fl (80.0-96.0); PLATELET COUNT, AUTOMATED 259 10^3/uL (150-450); RED BLOOD COUNT 4.52 10^6/uL (4.00-5.40); WHITE BLOOD COUNT 6.1 10^3/uL (4.0-10.0)
[2019-05-26 07:59] LABS: BLOOD UREA NITROGEN 12 MG/DL (7-18); CALCIUM LEVEL 8.7 MG/DL (8.8-10.2); CARBON DIOXIDE LEVEL 24 MEQ/L (21-32); CHLORIDE LEVEL 110 MEQ/L (98-107); CREATININE FOR GFR 0.63 MG/DL (0.55-1.30); GLOMERULAR FILTRATION RATE > 60.0 (>45); GLUCOSE, FASTING 102 MG/DL (70-100); POTASSIUM SERUM 4.2 MEQ/L (3.5-5.1); SODIUM LEVEL 142 MEQ/L (136-145)
--- NOTE | 2019-05-26 09:27 | IRHP ---
[facility] IR Pre-Procedure H & P General Date of Service: May 26, 2019 Procedure: Same Day Surgery Interval History and Physical I have seen the patient and reviewed last H & P performed within 30 days. There is no significant interval change. History of Present Illness Chief Complaint The patient is a 68-year-old female admitted with a reason for visit of Subclavian Stenosis. PRE-PROCEDURE DIAGNOSIS: subclavian stenosis HEART: normal rate LUNGS: normal breathing at rest. ASA Classification ASA Classification: III-Severe systemic dis. Mallampati Score: I NPO: Yes Problems with prior sedation: No Obstructive Sleep Apnea: No Plan moderate sedation Allergies Coded Allergies: MS - Naproxen (Verified Allergy, Intermediate, rash, 04/16/18) Home Medications Scheduled Aspirin (Aspirin EC), 81 MG PO DAILY, (Reported) Levocetirizine Dihydrochloride (Levocetirizine Dihydrochloride), 5 MG PO QPM, (Reported) Lisinopril (Lisinopril), 5 MG PO DAILY, (Reported) Metformin HCl (Metformin HCl), 500 MG PO DAILY, (Reported) Simvastatin (Simvastatin), 20 MG PO QPM, (Reported) Tiotropium [place] (Spiriva Respimat), 2 INHALATION INH DAILY, (Reported) Scheduled PRN Albuterol Sulfate (Ventolin Hfa), 2 PUFF INH Q4-6HP PRN for wheezing, (Reported) Ipratropium/Albuterol Sulfate (Iprat-Albut 0.5-3(2.5) mg/3 ml), 1 SUJEY INH Q6H PRN for WHEEZING Discontinued Medications Pantoprazole Sodium (Pantoprazole Sodium), 40 MG PO DAILY, (Reported) Discontinued Reason: Pt states not taking VS, I&O, 24H, Fishbone Vital Signs/I&O Vital Signs Date Time Temp Pulse Resp B/P (MAP) Pulse Ox O2 Delivery O2 Flow Rate FiO2 05/26/19 09:15 90 16 96 05/26/19 08:51 Nasal Cannula 2 05/26/19 06:50 98 Laboratory Data 24H LABS Laboratory Tests 2 05/26/19 07:22: Nucleated Red Blood Cells % (auto) 0.0, Anion Gap 8, Glomerular Filtration Rate > 60.0, Calcium Level 8.7L CBC/BMP Laboratory Tests 05/26/19 07:22 CAIN HA MD May 26, 2019 09:27
--- NOTE | 2019-05-26 12:33 | POST-OPPD ---
Postoperative Procedure Note Date Of Procedure: May 26, 2019 Time Of Procedure: 10:51 PREOPERATIVE DIAGNOSIS: subclavian artery stenosis. left POSTOPERATIVE DIAGNOSIS: same FINDINGS: same PROCEDURE: aortogram. calcification and atherosclerotic plaque/ulcer at origin of left common carotid. left subclavian arises off left common carotid. SURGEON: chantal ANESTHESIA: mod sed ESTIMATED BLOOD LOSS: < 5 ml COMPLICATIONS: none POSTOPERATIVE CONDITION: stable CAIN HA MD May 26, 2019 12:33
[2019-05-26 13:00] VITALS: BP 132/63
--- NOTE | 2019-05-27 08:12 | REP ---
IR Aortogram. IR vertebral artery catheterization. IR attempted left subclavian artery catheterization. IR moderate sedation. Clinical Information: Subclavian steal syndrome. Physician: Dr Gan.Procedure: The patient was advised of the benefits, risks, and alternatives of the procedure and informed consent was obtained.A time out was performed with verification of the patient's name, MRN, site of procedure, and type of procedure to be performed. The patient was positioned in the supine position on the angiographic table. The site was prepped and draped in the usual sterile fashion.Moderate sedation was performed by the physician including the presence of an independent trained observer who assisted in monitoring the patient's level of consciousness and physiological status. Following the administration of Fentanyl and Versed, the physician spent 60 minutes of continuous [id number] time with the patient. A sales ledger clerk radiograph reveals calcifications at the aortic arch. The right femoral artery was accessed with a micropuncture kit. A Bentson wire was advanced into the aorta. The micropuncture sheath was exchanged over the wire for a a 6-Irish vascular sheath. A 5-Irish pigtail catheter was advanced over the wire under fluoroscopy guidance into the aortic arch. An aortogram was performed and this demonstrates patent right brachiocephalic artery supplying right common carotid and right subclavian artery. Patent left common carotid artery and left vertebral artery. There is delayed opacification of the left subclavian artery from the vertebral artery. The origin of the left subclavian artery and proximal left subclavian artery is occluded. The pigtail catheter was exchanged over the wire for a Vert catheter. The catheter and wire were used under fluoroscopy guidance to try to catheterize the origin of the left subclavian artery. This failed. The catheter was removed over the wire. A Clifford catheter was advanced over the wire under fluoroscopy guidance and used to try to catheterize the origin of the left subclavian artery. Bentson, glide and Roadrunner wires were used. I was able to engage the origin of the left subclavian artery however could not get the catheter to pass over the wire due to complete occlusion and chunky calcifications. The catheter was removed. A 6-Irish Mynx device was used to close the groin arteriotomy and the sheath was removed. Hemostasis achieved. A sterile dressing was applied to the site. Patient tolerated the procedure well and was transferred to PRU in stable condition. Complications: None. Estimated blood loss: Less than 5 ml. Impression: 1. Aortogram demonstrates patent right brachiocephalic artery giving rise to right common carotid and right subclavian artery. Patent left common carotid artery and vertebral artery. 2. Occluded origin and proximal left subclavian artery with delayed filling of the subclavian artery from vertebral artery. 3. Unsuccessful endovascular catheterization of left subclavian artery due to complete occlusion and heavy calcifications at origin. Will refer the patient for surgical options. Thank you for this referral. Electronically Signed by Alvina Gan MD 05/27/2019 08:11 A
== END ==
LOC: M IRPRO 06:31
PROVIDERS: ATTEND Radiology Diagnostic Radiology
DX: G45.8 Other transient cerebral ischemic attacks and related syndromes (principal); I70.92 Chronic total occlusion of artery of the extremities

== ENCOUNTER → 2019-05-30 | Outpatient (CLI) | payer MEDICARE ==
[~2019-05-30] MED LIST changes: -HEPARIN 1,000 UNITS/ML 10ML VIAL (FOR RADIOLOGY& DIALYSIS ONLY) As Ordered ONE; -ISOVUE-300 61% 50ML VIAL (Q9967) As Ordered ONE; -LIDOCAINE 1% MDV 20ML VIAL As Ordered ONE; -MIDAZOLAM INJ 2 MG/2 ML VIAL (J2250) As Ordered ONE; -diphenhydrAMINE INJ 50MG/ML VIAL (J1200) As Ordered ONE; -fentaNYL 100 MCG/2 ML INJECTION (J3010) As Ordered ONE
--- NOTE | 2019-05-30 11:09 | REP ---
BILATERAL SCREENING DIGITAL MAMMOGRAM WITH 3D TOMOSYNTHESIS: There are no palpable abnormalities or other breast complaints. The the patient states she had a clinical breast examination May 2019. The Tyrer-Cuzick Score is: The the 7.3%. . Comparisons are: 05/28/2018, 01/23/2017, 12/14/2015 and 12/13/2014. There are scattered areas of fibroglandular density. There is a 2 mm nodular density anteriorly right breast on the CC view only. This cannot be identified on the comparison mammograms. Follow up spot compression diagnostic views and ultrasound are recommended. There is a 4 mm nodular density anteriorly in each breast on the CC view only, unchanged from 01/23/2017 and 05/28/2018, likely benign. Impression: BIRADS/ACR category 0 mammogram . Incomplete. Need additional imaging evaluation and / or prior mammograms for comparison. Recommendation: Follow-up spot compression diagnostic views and ultrasound are recommended as discussed above. This mammogram was interpreted with the aid of a FDA approved computer-aided detection system. A. Negative mammogram reports should not delay biopsy if a dominant or clinically suspicious mass is present. B. Not all breast cancers are identified by mammography or tomosynthesis. C. Adenosis and dense breasts may obscure an underlying neoplasm. Patient letter M0. Electronically Signed by Todd Mora MD 05/30/2019 11:02 A
== END ==
LOC: M WHC 09:19
PROVIDERS: ATTEND Nurse Practitioner Family
DX: Z12.31 Encounter for screening mammogram for malignant neoplasm of breast (principal)

== ENCOUNTER → 2019-05-31 | Outpatient (REF) | payer MEDICARE | LOC: M SFHCPLAZ 15:41 | PROVIDERS: ATTEND Family Medicine | DX: E11.29 Type 2 diabetes mellitus with other diabetic kidney complication (principal); Z53.8 Procedure and treatment not carried out for other reasons ==

== ENCOUNTER → 2019-05-31 | Outpatient (CLI) | payer MEDICARE ==
[2019-05-31 18:06] LABS: HEMOGLOBIN A1c 6.6 %
== END ==
LOC: M LAB 15:53
PROVIDERS: ATTEND Student in an Organized Health Care Education/Training Program
DX: E11.29 Type 2 diabetes mellitus with other diabetic kidney complication (principal)

== ENCOUNTER → 2019-06-07 | Outpatient (CLI) | payer MEDICARE ==
--- NOTE | 2019-06-07 11:44 | REP ---
DIAGNOSTIC MAMMOGRAM, RIGHT BREAST: Multiple spot compression views right breast performed to evaluate a possible 2 mm nodule. The 2 mm nodular density seen on the 05/30/2019 exam actually represents a blood vessel on end. There is no suspicious nodule visualized in the right retroareolar region on today's spot compression views. IMPRESSION: BIRADS 2: BI-RADS/ACR category 2 mammogram. Benign Findings. ACR 2, benign. The suspected 2 mm nodular density in the right retroareolar region on the CC view obtained 05/30/2019, actually represents a blood vessel on end. No persistent nodule. Recommend followup mammogram in 1 year. ACR 2, benign. The patient letter being requested is M1. Electronically Signed by Todd Felix MD 06/08/2019 01:30 P
== END ==
LOC: M RAD 10:30
PROVIDERS: ATTEND Nurse Practitioner Family
DX: R92.2 Inconclusive mammogram (principal)

== ENCOUNTER → 2019-07-14 | Outpatient (CLI) | payer MEDICARE ==
[2019-07-14 09:04] LABS: HEMOGLOBIN A1c 6.3 %
== END ==
LOC: M LAB 06:09
PROVIDERS: ATTEND Student in an Organized Health Care Education/Training Program
DX: E11.29 Type 2 diabetes mellitus with other diabetic kidney complication (principal)

== ENCOUNTER → 2019-07-14 | Outpatient (CLI) | payer MEDICARE ==
--- NOTE | 2019-07-14 11:43 | REP ---
CT chest without contrast: Low-dose screening exam. History: Nicotine dependence. Comparison chest CT study is from June 15, 2018. Also reviewed is a March 14, [address] There is a remote chest CT from February 24, 2013. Findings: There are scattered calcified granulomas which are unchanged from all of the prior CT studies. Minimal linear fibrosis is seen in the lingula. No abnormal ground-glass opacity or new pulmonary nodule is appreciated. Extensive vascular calcification is noted. Study is otherwise unremarkable. Impression: Lung BIRADS category 2 findings. Repeat screening exam suggested in 1 year. Electronically Signed by Chan Gilbert MD 07/14/2019 08:03 P
== END ==
LOC: M RAD 08:45
PROVIDERS: ATTEND Internal Medicine Pulmonary Disease
DX: F17.218 Nicotine dependence, cigarettes, with other nicotine-induced disorders (principal); Z12.2 Encounter for screening for malignant neoplasm of respiratory organs; E11.29 Type 2 diabetes mellitus with other diabetic kidney complication
CPT/HCPCS: 36415; 83036; G0297

== ENCOUNTER → 2019-10-24 | Outpatient (CLI) | payer MEDICARE ==
[~2019-10-24] MED LIST changes: +VITA-243 PO; -VITA500T PO
[2019-10-24 10:50] LABS: CREATININE, URINE 69.1 MG/DL; MALB URINE SIEMENS 9.4 MG/L; MAU/CREAT RATIO 13.6 MCG/MG (0.0-30.0)
[2019-10-24 11:18] LABS: HEMOGLOBIN A1c 6.3 %
== END ==
LOC: M LAB 09:21
PROVIDERS: ATTEND Student in an Organized Health Care Education/Training Program
DX: E11.9 Type 2 diabetes mellitus without complications (principal)

== ENCOUNTER → 2019-10-24 | Outpatient (REF) | payer MEDICARE | LOC: M SFHCPLAZ 09:07 | PROVIDERS: ATTEND Family Medicine | DX: E11.9 Type 2 diabetes mellitus without complications (principal) ==

== ENCOUNTER → 2019-10-30 | Outpatient (CLI) | payer MEDICARE ==
[~2019-10-30] MED LIST changes: +ESOM1CAP5 PO; +JANU100T PO; +VITA250T18 PO; +VITAD1000T PO; +ZOFR4TAB16 PO
== END ==
LOC: M LABSMTC 09:46
PROVIDERS: ATTEND Anesthesiology
DX: Z03.818 Encounter for observation for suspected exposure to other biological agents ruled out (principal)
CPT/HCPCS: C9803; U0003

== ENCOUNTER 2019-11-02 06:58 | Day surgery (SDC) | payer MEDICARE ==
[~2019-11-02] VITALS: Ht 160 cm; Wt 71.4 kg
[2019-11-02] MEDS ORDERED: NS 1,000 ML IV ONE (07:00)
[2019-11-02] MEDS ORDERED: LIDOCAINE 2% 100MG/5ML SDV (FOR ANES.) As Ordered ONE (07:06)
[2019-11-02] MEDS ORDERED: propofoL 200 MG/20 ML VIAL As Ordered ONE (07:06)
--- NOTE | 2019-11-02 07:49 | ROOR ---
Patient Name: Nereyda Dasilva Procedure Date: 11/02/2019 7:32 AM Date of : 1950 Age: 69 Room: [facility] Gender: Female Note Status: Finalized Procedure: Upper Endoscopy + Biopsies Indications: Heartburn, Exclusion of Johnson's esophagus Providers: Yariel Bradley MD Referring MD: [facility] D. [facility], Admin. Requesting Provider: Medicines: Monitored Anesthesia Care Complications: No immediate complications. Procedure: Pre-Anesthesia Assessment: - The heart rate, respiratory rate, oxygen saturations, blood pressure, adequacy of pulmonary ventilation, and response to care were monitored throughout the procedure. The Endoscope was introduced through the mouth, and advanced to the second part of duodenum. The upper GI endoscopy was accomplished without difficulty. The patient tolerated the procedure well. Findings: The Z-line was irregular and was found 39 cm from the incisors. Multiple biopsies were obtained with cold forceps for evaluation to rule out Johnson's Esophagus randomly at the gastroesophageal junction. A small hiatal hernia was present. No other significant abnormalities were identified in a careful examination of the stomach. The exam of the duodenum was otherwise normal. Impression: - Z-line irregular, 39 cm from the incisors. - Small hiatal hernia. - Multiple biopsies were obtained at the gastroesophageal junction. - The examination was otherwise normal. Recommendation: - Patient has a contact number available for emergencies. The signs and symptoms of potential delayed complications were discussed with the patient. Return to normal activities tomorrow. Written discharge instructions were provided to the patient. - High fiber diet. - Discharge patient to home. - Continue present medications. - Await pathology results. - Telephone GI clinic for pathology results in 1 week. - The findings and recommendations were discussed with the patient's family. Yariel Bradley MD Yariel Bradley MD 11/02/2019 7:49:14 AM Electronically signed by Yariel Bradley MD Number of Addenda: 0 Note Initiated On: 11/02/2019 7:32 AM Estimated Blood Loss: Estimated blood loss: none.
--- NOTE | 2019-11-02 08:11 | ROOR ---
Patient Name: Nereyda Dasilva Procedure Date: 11/02/2019 7:35 AM Date of : 1950 Age: 69 Room: [facility] Gender: Female Note Status: Finalized Procedure: Total Colonoscopy to Cecum + Biopsy Polypectomy Indications: Screening for colorectal malignant neoplasm Providers: Yariel Bradley MD Referring MD: [facility] D. [facility], Admin. Requesting Provider: Medicines: Monitored Anesthesia Care Complications: No immediate complications. Procedure: Pre-Anesthesia Assessment: - The heart rate, respiratory rate, oxygen saturations, blood pressure, adequacy of pulmonary ventilation, and response to care were monitored throughout the procedure. The Colonoscope was introduced through the anus and advanced to the cecum, identified by appendiceal orifice and ileocecal valve. The colonoscopy was performed without difficulty. The patient tolerated the procedure well. The quality of the bowel preparation was excellent. Findings: The perianal and digital rectal examinations were normal. Non-bleeding internal hemorrhoids were found during retroflexion. The hemorrhoids were small and Grade I (internal hemorrhoids that do not prolapse). A small polyp was found in the hepatic flexure. The polyp was sessile. The polyp was removed with a cold biopsy forceps. Resection and retrieval were complete. The exam was otherwise without abnormality on direct and retroflexion views. Two medium-sized angioectasias without bleeding were found in the cecum. Impression: - Non-bleeding internal hemorrhoids. - One small polyp at the hepatic flexure, removed with a cold biopsy forceps. Resected and retrieved. - The examination was otherwise normal on direct and retroflexion views. - Two non-bleeding colonic angioectasias. - The exam was otherwise normal to the cecum. Recommendation: - Patient has a contact number available for emergencies. The signs and symptoms of potential delayed complications were discussed with the patient. Return to normal activities tomorrow. Written discharge instructions were provided to the patient. - Discharge patient to home. - Continue present medications. - Await pathology results. - Telephone GI clinic for pathology results in 1 week. - Repeat colonoscopy in 5 years for surveillance based on pathology results. - Return to referring physician. - High fiber diet. - The findings and recommendations were discussed with the patient's family. Yariel Bradley MD Yariel Bradley MD 11/02/2019 8:10:41 AM Electronically signed by Yariel Bradley MD Number of Addenda: 0 Note Initiated On: 11/02/2019 7:35 AM Estimated Blood Loss: Estimated blood loss: none.
[2019-11-02 08:33] VITALS: BP 143/66
== END 2019-11-02 08:34 | disposition home or self-care (01) ==
LOC: M OPP 06:58
PROVIDERS: ATTEND Internal Medicine Gastroenterology
DX: Z12.11 Encounter for screening for malignant neoplasm of colon (principal); D12.3 Benign neoplasm of transverse colon; K64.0 First degree hemorrhoids; K55.20 Angiodysplasia of colon without hemorrhage; K22.8 Other specified diseases of esophagus; K44.9 Diaphragmatic hernia without obstruction or gangrene; R12 Heartburn; J44.9 Chronic obstructive pulmonary disease, unspecified; F17.210 Nicotine dependence, cigarettes, uncomplicated; Z79.82 Long term (current) use of aspirin; Z79.84 Long term (current) use of oral hypoglycemic drugs; Z79.899 Other long term (current) drug therapy; Z88.8 Allergy status to other drugs, medicaments and biological substances

== ENCOUNTER 2019-12-08 07:20 | Emergency (ER) | payer MEDICARE ==
[~2019-12-08 07:20] MED LIST changes: +D31000TA2 PO; +PANT40TA29 PO; -PANT40TA3 PO; -VITAD1000T PO
[2019-12-08] MEDS ORDERED: ISOVUE-370 76% 100ML VIAL As Ordered ONE (10:47)
[2019-12-08] MEDS ORDERED: KETOROLAC 30 MG/ML 1ML VIAL As Ordered ONE (14:25)
[2020-01-15 11:48] LABS: INR 0.91; PARTIAL THROMBOPLASTIN TIME 29.8 SECONDS (25.0-38.4); PROTHROMBIN TIME 12.4 SECONDS (11.8-14.0)
[2020-01-15 13:41] LABS: BASO % 0.6 % (0.0-1.0); EOS # 0.1 10^3/uL (0.0-0.5); EOS % 1.5 % (0.0-3.0); HEMATOCRIT 41.8 % (36.0-47.0); HEMOGLOBIN 13.7 g/dl (12.0-15.5); LYMPH # 1.2 10^3/uL (1.5-5.0); LYMPH % 18.5 % (24.0-44.0); MEAN CORPUSCULAR HEMOGLOBIN 29.7 pg (27.0-33.0); MEAN CORPUSCULAR HGB CONC 32.8 g/dl (32.0-36.5); MEAN CORPUSCULAR VOLUME 90.7 fl (80.0-96.0); MONO # 0.4 10^3/uL (0.0-0.8); MONO % 6.7 % (0.0-5.0); NEUTROPHILS # 4.8 10^3/uL (1.5-8.5); NEUTROPHILS % 72.2 % (36.0-66.0); PLATELET COUNT, AUTOMATED 268 10^3/uL (150-450); RED BLOOD COUNT 4.61 10^6/uL (4.00-5.40); WHITE BLOOD COUNT 6.6 10^3/uL (4.0-10.0)
[2020-01-15 13:52] LABS: ERYTHROCYTE SEDIMENTATION RATE 26 mm/hr (0-30)
--- NOTE | 2020-01-27 13:41 | REP ---
CT OF THE BRAIN WITHOUT CONTRAST: HISTORY: Posterior right sided neck and head pain. Rule out dissection or CVA. COMPARISON: None available. FINDINGS: Digital preliminary box office attendant radiographs are unremarkable. The maxilla is edentulous. The visualized paranasal sinuses are clear. Bone window settings demonstrate an intact bony calvarium. No bony destructive lesion is seen. No intraorbital abnormality is seen. Vascular calcification is seen in the distal internal carotid arteries and distal vertebral arteries. Felix white differentiation pattern is intact above and below the tentorium on soft tissue window settings. There is no evidence of intracranial hemorrhage. No infarct is seen. No mass, extra-axial fluid collection or midline shift is observed. IMPRESSION: Vascular calcification. Otherwise negative noncontrast head CT. No acute intracranial abnormality. MTDD
[2020-03-02 11:51] LABS: BLOOD UREA NITROGEN 12 MG/DL (7-18); CALCIUM LEVEL 9.3 MG/DL (8.8-10.2); CARBON DIOXIDE LEVEL 28 MEQ/L (21-32); CHLORIDE LEVEL 109 MEQ/L (98-107); CREATININE FOR GFR 0.63 MG/DL (0.55-1.30); GLOMERULAR FILTRATION RATE > 60.0 (>45); GLUCOSE, FASTING 106 MG/DL (70-100); POTASSIUM SERUM 4.6 MEQ/L (3.5-5.1); SODIUM LEVEL 139 MEQ/L (136-145)
== END 2019-12-08 14:45 | disposition home or self-care (01) ==
LOC: M ED 07:20
DX: M54.2 Cervicalgia (principal); I70.90 Unspecified atherosclerosis; L21.9 Seborrheic dermatitis, unspecified; E11.9 Type 2 diabetes mellitus without complications; I10 Essential (primary) hypertension; J44.9 Chronic obstructive pulmonary disease, unspecified; Z88.6 Allergy status to analgesic agent; Z79.899 Other long term (current) drug therapy
CPT/HCPCS: 70450; 70496; 70498; 80048; 85025; 85610; 85652; 85730; 86140; 96374; 99284; J1885; Q9967

== ENCOUNTER 2019-12-11 21:27 | Emergency (ER) | payer MEDICARE ==
[2019-12-12] MEDS ORDERED: NORCO, ANEXSIA 5/325MG TABLET (HYDROcodone/ACETAMINOPHEN) ONE (00:25)
[2019-12-12] MEDS ORDERED: NORCO, ANEXSIA 5/325MG TABLET (HYDROcodone/ACETAMINOPHEN) As Ordered ONE (00:25)
[2019-12-12] MEDS ORDERED: GABAPENTIN 300 MG CAP As Ordered ONE (01:47)
[2019-12-12] MEDS ORDERED: GABAPENTIN 300 MG CAP ONE (01:47)
[2020-01-29 03:46] LABS: BASO % 0.5 % (0.0-1.0); EOS # 0.3 10^3/uL (0.0-0.5); EOS % 3.2 % (0.0-3.0); HEMATOCRIT 40.6 % (36.0-47.0); HEMOGLOBIN 13.5 g/dl (12.0-15.5); LYMPH # 1.5 10^3/uL (1.5-5.0); LYMPH % 16.8 % (24.0-44.0); MEAN CORPUSCULAR HEMOGLOBIN 29.6 pg (27.0-33.0); MEAN CORPUSCULAR HGB CONC 33.3 g/dl (32.0-36.5); MONO # 0.5 10^3/uL (0.0-0.8); MONO % 5.8 % (0.0-5.0); NEUTROPHILS # 6.5 10^3/uL (1.5-8.5); NEUTROPHILS % 73.4 % (36.0-66.0); PLATELET COUNT, AUTOMATED 243 10^3/uL (150-450); RED BLOOD COUNT 4.56 10^6/uL (4.00-5.40); WHITE BLOOD COUNT 8.8 10^3/uL (4.0-10.0)
[2020-02-20 01:20] LABS: ALBUMIN 4.2 GM/DL (3.2-5.2); ALT/SGPT 18 U/L (12-78); BILIRUBIN,TOTAL 0.3 MG/DL (0.2-1.0); BLOOD UREA NITROGEN 12 MG/DL (7-18); CALCIUM LEVEL 9.2 MG/DL (8.8-10.2); CARBON DIOXIDE LEVEL 25 MEQ/L (21-32); CHLORIDE LEVEL 108 MEQ/L (98-107); CREATININE FOR GFR 0.65 MG/DL (0.55-1.30); GLOMERULAR FILTRATION RATE > 60.0 (>45); GLUCOSE, FASTING 105 MG/DL (70-100); POTASSIUM SERUM 3.9 MEQ/L (3.5-5.1); SODIUM LEVEL 137 MEQ/L (136-145); TOTAL PROTEIN 7.3 GM/DL (6.4-8.2)
== END 2019-12-12 01:50 | disposition home or self-care (01) ==
LOC: M ED 21:27
DX: R51 Headache (principal); R22.0 Localized swelling, mass and lump, head; Z88.6 Allergy status to analgesic agent; Z79.82 Long term (current) use of aspirin; Z79.899 Other long term (current) drug therapy; F17.200 Nicotine dependence, unspecified, uncomplicated; Z78.0 Asymptomatic menopausal state; J44.9 Chronic obstructive pulmonary disease, unspecified; Z79.51 Long term (current) use of inhaled steroids

== ENCOUNTER → 2020-02-02 | Outpatient (CLI) | payer MEDICARE ==
[2020-02-02 07:38] LABS: BLOOD UREA NITROGEN 18 MG/DL (7-18); CALCIUM LEVEL 9.4 MG/DL (8.8-10.2); CARBON DIOXIDE LEVEL 28 MEQ/L (21-32); CHLORIDE LEVEL 104 MEQ/L (98-107); CHOLESTEROL LEVEL 163 MG/DL (<200); CHOLESTEROL RISK RATIO 2.173 (<5); CREATININE FOR GFR 0.72 MG/DL (0.55-1.30); GLOMERULAR FILTRATION RATE > 60.0 (>45); GLUCOSE, FASTING 93 MG/DL (70-100); HDL CHOLESTEROL 75 MG/DL (>40); LDL CHOLESTEROL 62 MG/DL (<100); NON-HDL-C 88 MG/DL; POTASSIUM SERUM 3.9 MEQ/L (3.5-5.1); SODIUM LEVEL 137 MEQ/L (136-145); TRIGLYCERIDES LEVEL 129 MG/DL (<150)
== END ==
LOC: M LAB 06:12
PROVIDERS: ATTEND Family Medicine
DX: Z00.00 Encounter for general adult medical examination without abnormal findings (principal); Z79.899 Other long term (current) drug therapy

== ENCOUNTER → 2020-02-29 | Outpatient (REF) | payer MEDICARE | LOC: M SFHCPLAZ 08:47 | PROVIDERS: ATTEND Family Medicine | DX: E11.9 Type 2 diabetes mellitus without complications (principal); R25.2 Cramp and spasm ==

== ENCOUNTER → 2020-03-29 | Outpatient (CLI) | payer MEDICARE ==
[2020-03-29 07:14] LABS: HEMATOCRIT 44.3 % (36.0-47.0); HEMOGLOBIN 14.5 g/dl (12.0-15.5); MEAN CORPUSCULAR HEMOGLOBIN 29.6 pg (27.0-33.0); MEAN CORPUSCULAR HGB CONC 32.7 g/dl (32.0-36.5); MEAN CORPUSCULAR VOLUME 90.4 fl (80.0-96.0); PLATELET COUNT, AUTOMATED 279 10^3/uL (150-450); WHITE BLOOD COUNT 6.7 10^3/uL (4.0-10.0)
[2020-03-29 07:19] LABS: HEMATOCRIT 44.3 % (36.0-47.0)
[2020-03-29 07:25] LABS: HEMOGLOBIN A1c 6.2 %
[2020-03-29 07:31] LABS: BLOOD UREA NITROGEN 11 MG/DL (7-18); CALCIUM LEVEL 9.5 MG/DL (8.8-10.2); CARBON DIOXIDE LEVEL 28 MEQ/L (21-32); CHLORIDE LEVEL 104 MEQ/L (98-107); CREATININE FOR GFR 0.72 MG/DL (0.55-1.30); FERRITIN 50 NG/ML (8-252); GLOMERULAR FILTRATION RATE > 60.0 (>45); GLUCOSE, FASTING 109 MG/DL (70-100); IRON (FE) 73 UG/DL (50-170); PHOSPHORUS LEVEL 3.7 MG/DL (2.5-4.9); POTASSIUM SERUM 3.9 MEQ/L (3.5-5.1); SODIUM LEVEL 138 MEQ/L (136-145)
[2020-03-29 11:44] LABS: VITAMIN B12 LEVEL 254 PG/ML (247-911)
== END ==
LOC: M LAB 06:18
PROVIDERS: ATTEND Family Medicine
DX: E11.9 Type 2 diabetes mellitus without complications (principal); R25.2 Cramp and spasm

== ENCOUNTER → 2020-06-07 | Outpatient (CLI) | payer MEDICARE ==
[2020-06-07 07:32] LABS: HEMOGLOBIN A1c 6.3 %
[2020-06-07 07:41] LABS: BLOOD UREA NITROGEN 10 MG/DL (7-18); CALCIUM LEVEL 9.1 MG/DL (8.8-10.2); CARBON DIOXIDE LEVEL 29 MEQ/L (21-32); CHLORIDE LEVEL 104 MEQ/L (98-107); CREATININE FOR GFR 0.71 MG/DL (0.55-1.30); GLOMERULAR FILTRATION RATE > 60.0 (>45); GLUCOSE, FASTING 100 MG/DL (70-100); POTASSIUM SERUM 4.2 MEQ/L (3.5-5.1); SODIUM LEVEL 140 MEQ/L (136-145)
== END ==
LOC: M LAB 06:31
PROVIDERS: ATTEND Family Medicine
DX: E11.9 Type 2 diabetes mellitus without complications (principal)

== ENCOUNTER → 2020-06-12 | Outpatient (REF) | payer MEDICARE | LOC: M SFHCPLAZ 14:13 | PROVIDERS: ATTEND Family Medicine | DX: E11.9 Type 2 diabetes mellitus without complications (principal) ==

== ENCOUNTER → 2020-06-13 | Outpatient (CLI) | payer MEDICARE ==
--- NOTE | 2020-06-13 12:35 | DEXAMM ---
INDICATION: M85.80 OSTEOPENIA. COMPARISON: Comparison study May 28, 2018.. TECHNIQUE: Bone density was measured using dual-energy x-ray absorptionmetry (DEXA). FINDINGS: AP SPINE L1-L4 BMD 1.093 g/cm2 Young Adult T-Score -0.8 Age Matched Z-Score 0.8. LT FEMUR, TOTAL BMD 0.774 g/cm2 Young Adult T-Score -1.9 Age Matched Z-Score -0.5. LT NECK BMD 0.702 g/cm2 Young Adult T-Score -2.4 Age Matched Z-Score -0.8. RT FEMUR, TOTAL BMD 0.734 g/cm2 Young Adult T-Score -2.2 Age Matched Z-Score -0.8. RT NECK BMD 0.699 g/cm2 Young Adult T-Score -2.4 Age Matched Z-Score -0.9. IMPRESSION: There is normal bone density of the spine. There is low bone density of the left hip. There is low bone density of the right hip. The density of the spine has increased 2.1% since the initial exam on May 28, 2018. The density of the left hip has increased 0.3% since initial exam on May 28, 2018. The density of the right hip has decreased 4.6% since the initial exam on May 28, 2018. FOLLOW-UP: Recommendation for the next bone density exam: 2 years. <Electronically signed by Tariq Gilbert > 06/13/20 [id number]
--- NOTE | 2020-06-13 12:50 | REPMRS ---
Patient History The patient states she had a clinical breast exam in 2020. Family history of breast cancer at age 62 in mother. Benign stereotactic core biopsy of both breasts, 2001. No Hormone Replacement Therapy Digital Woman Screen Mammo: June 13, 2020 - Exam #: [id number] Bilateral CC and MLO view(s) were taken. Technologist: Rozina Uribe, Technologist Prior study comparison: June 07, 2019, right breast digital mammo diagnostic unilateral, performed at [facility]. May 30, 2019, bilateral digital woman screen mammo performed at [facility]. May 28, 2018, bilateral digital woman screen mammo performed at [facility]. January 23, 2017, digital woman screen mammo performed at [facility]. FINDINGS: There are scattered fibroglandular densities. The Volpara volumetric breast density category is:B. There has been no change in the appearance of the mammogram from the prior studies. There is a mild amount of scattered fibroglandular density which is fairly symmetric. There is no interval development of dominant mass, architectural distortion, or grouped microcalcification suggestive of malignancy. 3-D tomosynthesis shows no additional findings. Assessment: BI-RADS/ACR category 1 mammogram. Negative Mammogram. Recommendation Routine screening mammogram of both breasts in 1 year (for women over age 40). This patient's [facility] Lifetime Breast Cancer Risk is estimated at 6.9 %. This mammogram was interpreted with the aid of an FDA-approved computer-aided dectection system. Electronically Signed By: Tariq Gilbert MD 06/13/20 [id number]
== END ==
LOC: M WHC 10:27
PROVIDERS: ATTEND Nurse Practitioner Family
DX: Z12.31 Encounter for screening mammogram for malignant neoplasm of breast (principal); M85.88 Other specified disorders of bone density and structure, other site; Z80.3 Family history of malignant neoplasm of breast; Z86.018 Personal history of other benign neoplasm

== ENCOUNTER → 2020-07-06 | Outpatient (CLI) | payer MEDICARE ==
[~2020-07-06] MED LIST changes: -LISI-542 PO; +LISI-898 PO
--- NOTE | 2020-07-06 12:59 | REP ---
INDICATION: OTHER NONSPECIFIC ABNORMAL FINDING OF LUNG FIELD. COMPARISON: Low-dose CT 07/14/2019, CT 06/15/2018 TECHNIQUE: Noncontrast CT with coronal and sagittal reconstructions provided. FINDINGS: This study again shows some scattered calcified granulomas which are stable from multiple prior exams. Some apical pleuroparenchymal scarring is noted right greater than left but also stable. There is no pleural thickening, calcified pleural plaque, pleural effusion or acute infiltrate some minor subsegmental atelectasis and ground-glass opacities deep sulci both lower lung zones unchanged. Heart is not enlarged. There is no pericardial thickening or effusion. The aorta is calcified at its origin, ascending, arch and descending portions. No aneurysm. Coronary artery calcifications are noted. No pathologic sized mediastinal or hilar adenopathy. No hilar axillary nodes a pathologic sized noted. Bone windows show marginal osteophytes throughout the thoracic spine without compression deformity or destructive lesion posterior ribs, medial clavicles, sternum, manubrium, scapula humeral heads all grossly intact. The upper abdomen shows no hiatal hernia. Visualized organs showed no acute finding. There are calcifications in arteries of the renal hilus bilaterally and into the kidney. There is an extrarenal pelvis on the right. Pancreas, adrenal glands, and spleen unremarkable there is a small splenule. Bowel loops unchanged. IMPRESSION: 1. Scattered calcified granulomas in the lung carmona as before. No effusion, acute infiltrate or parenchymal mass. No new nodules or noncalcified nodules. Posterior lower lung zones show some ground-glass opacity and subsegmental atelectatic change, this is stable. 2. Calcifications throughout the aorta and some in coronary arteries. No aneurysm. 3. No pathologic sized mediastinal, hilar, axillary or supraclavicular adenopathy. 4. Upper abdominal region grossly intact. <Electronically signed by Heriberto Rodriguez > 07/06/20 [id number]
== END ==
LOC: M RAD 09:54
PROVIDERS: ATTEND Internal Medicine Pulmonary Disease
DX: J98.4 Other disorders of lung (principal)

== ENCOUNTER → 2020-12-06 | Outpatient (CLI) | payer MEDICARE ==
[2020-12-06 11:40] LABS: BLOOD UREA NITROGEN 11 MG/DL (7-18); CALCIUM LEVEL 9.7 MG/DL (8.8-10.2); CARBON DIOXIDE LEVEL 28 MEQ/L (21-32); CHLORIDE LEVEL 108 MEQ/L (98-107); CREATININE FOR GFR 0.63 MG/DL (0.55-1.30); GLOMERULAR FILTRATION RATE > 60.0 (>45); GLUCOSE, FASTING 86 MG/DL (70-100); POTASSIUM SERUM 4.6 MEQ/L (3.5-5.1); SODIUM LEVEL 141 MEQ/L (136-145)
[2020-12-06 12:07] LABS: HEMOGLOBIN A1c 6.2 %
== END ==
LOC: M PLALAB 08:58
PROVIDERS: ATTEND Physician Assistant Medical
DX: E11.9 Type 2 diabetes mellitus without complications (principal)

== ENCOUNTER → 2020-12-11 | Outpatient (REF) | payer MEDICARE ==
[~2020-12-11] MED LIST changes: -LISI-898 PO; +LISI5TAB11 PO
== END ==
LOC: M SFHCPLAZ 14:32
PROVIDERS: ATTEND Internal Medicine
DX: E03.9 Hypothyroidism, unspecified (principal)

== ENCOUNTER → 2020-12-12 | Outpatient (CLI) | payer MEDICARE ==
[~2020-12-12] MED LIST changes: +LISI-898 PO; -LISI5TAB11 PO
[2020-12-12 11:09] LABS: FREE T4 1.06 NG/DL (0.76-1.46); THYROID STIMULATING HORMONE 0.681 uIU/ML (0.358-3.740)
== END ==
LOC: M PLALAB 08:04
PROVIDERS: ATTEND Family Medicine
DX: E03.9 Hypothyroidism, unspecified (principal)

== ENCOUNTER → 2021-01-29 | Outpatient (CLI) | payer MEDICARE ==
--- NOTE | 2021-01-29 13:44 | REP ---
INDICATION: ABNORMAL FINDING OF LUNG FIELD COMPARISON: Multiple the latest 07/06/2020 also without contrast TECHNIQUE: Standard helical technique without intravenous contrast FINDINGS: The mediastinum and pulmonary arpan are stable. There is no evidence of a mass or adenopathy. There are no pleural or pericardial effusions. There is no change in the imaged upper abdomen or imaged osseous structures. Evaluation of the lung carmona shows mild biapical pleuroparenchymal scarring status quo. There are no new abnormal nodules, masses, or opacities. There are incidental calcified granulomas status quo. IMPRESSION: Stable CT examination the chest. There is no evidence of acute disease. The basilar opacities seen previously likely represent chronic fibrotic and/or subsegmental atelectatic changes. <Electronically signed by Enrique Parekh > 01/29/21 [id number]
== END ==
LOC: M PLAIMG 13:00
PROVIDERS: ATTEND Internal Medicine Pulmonary Disease
DX: R91.8 Other nonspecific abnormal finding of lung field (principal)

== ENCOUNTER → 2021-06-28 | Outpatient (REF) | payer MEDICARE ==
[~2021-06-28] MED LIST changes: -LISI-898 PO; +LISI5TAB11 PO
== END ==
LOC: M SFHCPLAZ 10:52
PROVIDERS: ATTEND Family Medicine
DX: E11.9 Type 2 diabetes mellitus without complications (principal)

== ENCOUNTER → 2021-07-15 | Outpatient (CLI) | payer MEDICARE ==
[~2021-07-15] MED LIST changes: -D31000TA2 PO; +VITA100093 PO
[2021-07-15 07:42] LABS: BLOOD UREA NITROGEN 14 MG/DL (7-18); CALCIUM LEVEL 8.8 MG/DL (8.8-10.2); CARBON DIOXIDE LEVEL 29 MEQ/L (21-32); CHLORIDE LEVEL 110 MEQ/L (98-107); CREATININE FOR GFR 0.67 MG/DL (0.55-1.30); GLOMERULAR FILTRATION RATE > 60.0 (>45); GLUCOSE, FASTING 99 MG/DL (70-100); POTASSIUM SERUM 4.1 MEQ/L (3.5-5.1); SODIUM LEVEL 143 MEQ/L (136-145)
[2021-07-15 08:38] LABS: HEMOGLOBIN A1c 6.3 %
[2021-07-15 08:48] LABS: MAU/CREAT RATIO 8.1 MCG/MG (0.0-30.0)
== END ==
LOC: M LAB 06:39
PROVIDERS: ATTEND Family Medicine
DX: E11.9 Type 2 diabetes mellitus without complications (principal)

== ENCOUNTER → 2021-09-02 | Outpatient (REF) | payer MEDICARE | LOC: M SFHCPLAZ 17:10 | PROVIDERS: ATTEND Family Medicine | DX: J02.9 Acute pharyngitis, unspecified (principal) ==

== ENCOUNTER → 2021-11-05 | Outpatient (CLI) | payer MEDICARE | LOC: M WHC 07:44 | PROVIDERS: ATTEND Advanced Practice Midwife | DX: Z01.419 Encounter for gynecological examination (general) (routine) without abnormal findings (principal); N63.21 Unspecified lump in the left breast, upper outer quadrant ==

== ENCOUNTER → 2021-11-05 | Outpatient (CLI) | payer MEDICARE | LOC: M WHC 10:17 | PROVIDERS: ATTEND Advanced Practice Midwife | DX: Z12.31 Encounter for screening mammogram for malignant neoplasm of breast (principal) ==

== ENCOUNTER → 2021-11-06 | Outpatient (CLI) | payer MEDICARE | LOC: M RAD 07:01 | PROVIDERS: ATTEND Internal Medicine Pulmonary Disease | DX: J44.9 Chronic obstructive pulmonary disease, unspecified (principal) ==

== ENCOUNTER → 2021-11-26 | Outpatient (CLI) | payer MEDICARE ==
[2021-11-26 14:00] LABS: BILIRUBIN,DIRECT 0.1 MG/DL (0.0-0.2); BILIRUBIN,TOTAL 0.5 MG/DL (0.2-1.0); TOTAL PROTEIN 7.2 GM/DL (6.4-8.2)
== END ==
LOC: M LAB 12:41
PROVIDERS: ATTEND Otolaryngology
DX: J37.0 Chronic laryngitis (principal)

== ENCOUNTER → 2022-02-17 | Outpatient (CLI) | payer MEDICARE ==
[2022-02-17 07:30] LABS: HEMOGLOBIN A1c 6.1 %
[2022-02-17 07:53] LABS: BLOOD UREA NITROGEN 13 MG/DL (7-18); CALCIUM LEVEL 8.9 MG/DL (8.8-10.2); CARBON DIOXIDE LEVEL 29 MEQ/L (21-32); CHLORIDE LEVEL 106 MEQ/L (98-107); CHOLESTEROL LEVEL 156 MG/DL (<200); CHOLESTEROL RISK RATIO 2.476 (<5); CREATININE FOR GFR 0.73 MG/DL (0.55-1.30); GLOMERULAR FILTRATION RATE > 60.0 (>45); GLUCOSE, FASTING 114 MG/DL (70-100); HDL CHOLESTEROL 63 MG/DL (>40); LDL CHOLESTEROL 71 MG/DL (<100); NON-HDL-C 93 MG/DL; POTASSIUM SERUM 4.4 MEQ/L (3.5-5.1); SODIUM LEVEL 138 MEQ/L (136-145); TRIGLYCERIDES LEVEL 111 MG/DL (<150)
[2022-02-17 08:00] LABS: MALB URINE SIEMENS 11.8 MG/L; MAU/CREAT RATIO 8.6 MCG/MG (0.0-30.0)
== END ==
LOC: M LAB 06:19
PROVIDERS: ATTEND Student in an Organized Health Care Education/Training Program
DX: E11.9 Type 2 diabetes mellitus without complications (principal)

== ENCOUNTER → 2022-02-24 | Outpatient (CLI) | payer MEDICARE | LOC: M RAD 14:09 | PROVIDERS: ATTEND Internal Medicine Pulmonary Disease | DX: Z12.2 Encounter for screening for malignant neoplasm of respiratory organs (principal); F17.218 Nicotine dependence, cigarettes, with other nicotine-induced disorders ==

== ENCOUNTER → 2022-06-04 | Outpatient (CLI) | payer MEDICARE | LOC: M CARPUL 11:12 | PROVIDERS: ATTEND Student in an Organized Health Care Education/Training Program | DX: R06.09 Other forms of dyspnea (principal) ==

== ENCOUNTER → 2022-07-02 | Outpatient (CLI) | payer MEDICARE ==
[2022-07-02 07:07] LABS: HEMATOCRIT 43.4 % (36.0-47.0); MEAN CORPUSCULAR HEMOGLOBIN 29.2 pg (27.0-33.0); MEAN CORPUSCULAR HGB CONC 32.3 g/dl (32.0-36.5); MEAN CORPUSCULAR VOLUME 90.6 fl (80.0-96.0); PLATELET COUNT, AUTOMATED 219 10^3/uL (150-450); RED BLOOD COUNT 4.79 10^6/uL (4.00-5.40); WHITE BLOOD COUNT 6.6 10^3/uL (4.0-10.0)
[2022-07-02 07:33] LABS: ALBUMIN 3.8 G/DL (3.2-5.2); BILIRUBIN,DIRECT 0.2 MG/DL (<0.4); BILIRUBIN,TOTAL 0.8 MG/DL (0.3-1.2); CHOLESTEROL RISK RATIO 2.45 (<5); HDL CHOLESTEROL 61.9 MG/DL (>40); LDL CHOLESTEROL 69.9 MG/DL (<100); TOTAL PROTEIN 6.6 G/DL (5.7-8.2)
[2022-07-02 08:57] LABS: HEMOGLOBIN A1c 6.4 % (4.0-6.0)
== END ==
LOC: M LAB 06:21
PROVIDERS: ATTEND Student in an Organized Health Care Education/Training Program
DX: E11.9 Type 2 diabetes mellitus without complications (principal); E78.2 Mixed hyperlipidemia; F17.200 Nicotine dependence, unspecified, uncomplicated

== ENCOUNTER → 2022-07-21 | Outpatient (CLI) | payer MEDICARE ==
[2022-07-21 07:08] LABS: BLOOD UREA NITROGEN 15 MG/DL (9-23); CALCIUM LEVEL 9.1 MG/DL (8.3-10.6); CARBON DIOXIDE LEVEL 28 MMOL/L (20-31); CHLORIDE LEVEL 106 MMOL/L (98-107); CREATININE FOR GFR 0.89 MG/DL (0.55-1.30); GLOMERULAR FILTRATION RATE > 60.0 (>45); GLUCOSE, FASTING 90 MG/DL (74-106); POTASSIUM SERUM 4.3 MMOL/L (3.5-5.1); SODIUM LEVEL 139 MMOL/L (136-145)
== END ==
LOC: M LAB 06:12
PROVIDERS: ATTEND Student in an Organized Health Care Education/Training Program
DX: I10 Essential (primary) hypertension (principal)

== ENCOUNTER → 2022-09-01 | Outpatient (CLI) | payer MEDICARE | LOC: M RAD 14:28 | PROVIDERS: ATTEND Surgery Vascular Surgery | DX: I70.213 Atherosclerosis of native arteries of extremities with intermittent claudication, bilateral legs (principal); I65.23 Occlusion and stenosis of bilateral carotid arteries; I73.9 Peripheral vascular disease, unspecified ==

== ENCOUNTER → 2022-09-02 | Outpatient (CLI) | payer MEDICARE | LOC: M RAD 12:00 | PROVIDERS: ATTEND Surgery Vascular Surgery | DX: I70.213 Atherosclerosis of native arteries of extremities with intermittent claudication, bilateral legs (principal); I65.23 Occlusion and stenosis of bilateral carotid arteries ==

== ENCOUNTER → 2022-10-02 | Outpatient (CLI) | payer MEDICARE | LOC: M PLAIMG 08:05 | PROVIDERS: ATTEND Student in an Organized Health Care Education/Training Program | DX: M51.37 Other intervertebral disc degeneration, lumbosacral region (principal) ==

== ENCOUNTER → 2022-10-02 | Outpatient (CLI) | payer MEDICARE ==
[2022-10-02 10:15] LABS: BLOOD UREA NITROGEN 14 MG/DL (9-23); CREATININE FOR GFR 0.87 MG/DL (0.55-1.30); GLOMERULAR FILTRATION RATE > 60.0 (>39)
== END ==
LOC: M LAB 08:54
PROVIDERS: ATTEND Surgery Vascular Surgery
DX: Z01.818 Encounter for other preprocedural examination (principal)

== ENCOUNTER → 2022-10-08 | Outpatient (CLI) | payer MEDICARE ==
[~2022-10-08] MED LIST changes: +ISOVUE-370 76% 100ML VIAL As Ordered ONE
== END ==
LOC: M RAD 07:28
PROVIDERS: ATTEND Surgery Vascular Surgery
DX: I65.23 Occlusion and stenosis of bilateral carotid arteries (principal)
CPT/HCPCS: 70496; 70498; Q9967

== ENCOUNTER → 2022-11-06 | Outpatient (CLI) | payer MEDICARE ==
[~2022-11-06] MED LIST changes: -ISOVUE-370 76% 100ML VIAL As Ordered ONE
== END ==
LOC: M WHC 07:36
PROVIDERS: ATTEND Student in an Organized Health Care Education/Training Program
DX: Z12.31 Encounter for screening mammogram for malignant neoplasm of breast (principal); M81.0 Age-related osteoporosis without current pathological fracture

== ENCOUNTER 2022-12-08 12:25 | Day surgery (SDC) | payer MEDICARE ==
[~2022-12-08] VITALS: Ht 158.8 cm; Wt 71.4 kg
[~2022-12-08 12:25] MED LIST changes: +ATOR80TA59 PO; +CLOP75TA2 PO; +LISI20TA33 PO; +NS 1,000 ML IV ONE; +TRUL10IN SC
[2022-12-08] MEDS ORDERED: fentaNYL 100 MCG/2 ML INJECTION As Ordered ONE (14:51)
[2022-12-08] MEDS ORDERED: propofoL 200 MG/20 ML VIAL As Ordered ONE (14:51)
[2022-12-08] MEDS ORDERED: LIDOCAINE 2% 100MG/5ML SDV (FOR ANES.) As Ordered ONE (14:51)
[2022-12-08 15:48] VITALS: BP 114/59; TEMP 97.4; O2SAT 98
[2022-12-08] MEDS ORDERED: PHENYLephrine 500MCG 5ML (100MCG/ML) SYRINGE As Ordered ONE (15:54)
== END 2022-12-08 16:17 | disposition home or self-care (01) ==
LOC: M OPP 12:25
PROVIDERS: ATTEND Internal Medicine Gastroenterology
DX: Z86.010 Personal history of colon polyps (principal); D12.2 Benign neoplasm of ascending colon; D64.0 Hereditary sideroblastic anemia; K57.30 Diverticulosis of large intestine without perforation or abscess without bleeding; K22.70 Barrett's esophagus without dysplasia; K22.89 Other specified disease of esophagus; K44.9 Diaphragmatic hernia without obstruction or gangrene; F17.200 Nicotine dependence, unspecified, uncomplicated; Z79.02 Long term (current) use of antithrombotics/antiplatelets; Z79.82 Long term (current) use of aspirin; Z79.899 Other long term (current) drug therapy; Z88.6 Allergy status to analgesic agent
CPT/HCPCS: 43239; 45385; 88305; J2371; J3010

== ENCOUNTER → 2022-12-30 | Outpatient (CLI) | payer MEDICARE ==
[~2022-12-30] MED LIST changes: -NS 1,000 ML IV ONE
[2022-12-30 08:00] LABS: ALKALINE PHOSPHATASE 64 U/L (46-116); ALT/SGPT 18 U/L (7.0-40); AST/SGOT 11 U/L (<34); BILIRUBIN,TOTAL 0.8 MG/DL (0.3-1.2); BLOOD UREA NITROGEN 15 MG/DL (9-23); CARBON DIOXIDE LEVEL 27 MMOL/L (20-31); CHLORIDE LEVEL 107 MMOL/L (98-107); CHOLESTEROL LEVEL 150 MG/DL (<200); CHOLESTEROL RISK RATIO 2.89 (<5); CREATININE FOR GFR 0.95 MG/DL (0.55-1.30); GLOMERULAR FILTRATION RATE > 60.0 (>39); GLUCOSE, FASTING 96 MG/DL (74-106); HDL CHOLESTEROL 51.9 MG/DL (>40); LDL CHOLESTEROL 71.5 MG/DL (<100); NON-HDL-C 98.1 MG/DL; POTASSIUM SERUM 4.5 MMOL/L (3.5-5.1); SODIUM LEVEL 140 MMOL/L (136-145); TOTAL PROTEIN 6.8 G/DL (5.7-8.2); TRIGLYCERIDES LEVEL 133 MG/DL (<150)
== END ==
LOC: M LAB 07:02
PROVIDERS: ATTEND Nurse Practitioner Family
DX: E78.5 Hyperlipidemia, unspecified (principal)

== ENCOUNTER → 2023-02-12 | Outpatient (CLI) | payer MEDICARE | LOC: M PLAIMG 15:11 | PROVIDERS: ATTEND Student in an Organized Health Care Education/Training Program | DX: R07.89 Other chest pain (principal) ==

== ENCOUNTER → 2023-05-14 | Outpatient (CLI) | payer MEDICARE | LOC: M RAD 07:51 | PROVIDERS: ATTEND Internal Medicine Pulmonary Disease | DX: Z12.2 Encounter for screening for malignant neoplasm of respiratory organs (principal); F17.218 Nicotine dependence, cigarettes, with other nicotine-induced disorders ==

== ENCOUNTER → 2023-07-31 | Outpatient (CLI) | payer MEDICARE | LOC: M PLAIMG 08:54 | PROVIDERS: ATTEND Student in an Organized Health Care Education/Training Program | DX: M19.042 Primary osteoarthritis, left hand (principal) ==

== ENCOUNTER → 2023-09-28 | Outpatient (CLI) | payer MEDICARE ==
[2023-09-28 07:57] LABS: HEMOGLOBIN A1c 5.7 % (4.0-6.0)
[2023-09-28 08:09] LABS: CALCIUM LEVEL 8.8 MG/DL (8.3-10.6); CREATININE FOR GFR 1.1 MG/DL (0.55-1.30); CREATININE, URINE 91.5 MG/DL; GLOMERULAR FILTRATION RATE 52.1 (>39); MAU/CREAT RATIO 3.2 MCG/MG (0.0-30.0); POTASSIUM SERUM 4.5 MMOL/L (3.5-5.1)
[2023-09-28 08:14] LABS: TOTAL 25(OH) VITAMIN D 42.4 NG/ML (20.0-100.0)
== END ==
LOC: M LAB 07:12
PROVIDERS: ATTEND Student in an Organized Health Care Education/Training Program
DX: E11.9 Type 2 diabetes mellitus without complications (principal)

== ENCOUNTER → 2023-11-09 | Outpatient (CLI) | payer MEDICARE ==
[~2023-11-09] MED LIST changes: +ESOM1CAP20 PO; -ESOM1CAP5 PO
== END ==
LOC: M WHC 07:39
PROVIDERS: ATTEND Student in an Organized Health Care Education/Training Program
DX: Z12.31 Encounter for screening mammogram for malignant neoplasm of breast (principal)

== ENCOUNTER → 2024-01-18 | Outpatient (REF) | payer BC, MEDICARE | LOC: M SFHCPLAZ 14:13 | PROVIDERS: ATTEND Student in an Organized Health Care Education/Training Program | DX: I73.9 Peripheral vascular disease, unspecified (principal); Z13.1 Encounter for screening for diabetes mellitus; Z79.02 Long term (current) use of antithrombotics/antiplatelets ==

== ENCOUNTER → 2024-01-22 | Outpatient (CLI) | payer MEDICARE ==
[2024-01-22 07:54] LABS: HEMATOCRIT 41.2 % (36.0-47.0); HEMOGLOBIN 13.5 g/dl (12.0-15.5); MEAN CORPUSCULAR HEMOGLOBIN 30.1 pg (27.0-33.0); MEAN CORPUSCULAR HGB CONC 32.8 g/dl (32.0-36.5); PLATELET COUNT, AUTOMATED 247 10^3/uL (150-450); RED BLOOD COUNT 4.48 10^6/uL (4.00-5.40); WHITE BLOOD COUNT 5.3 10^3/uL (4.0-10.0)
[2024-01-22 08:09] LABS: HEMOGLOBIN A1c 5.7 % (4.0-6.0)
[2024-01-22 08:25] LABS: CHOLESTEROL RISK RATIO 2.55 (<5); HDL CHOLESTEROL 61.4 MG/DL (>40); LDL CHOLESTEROL 66.6 MG/DL (<100); NON-HDL-C 95.6 MG/DL
== END ==
LOC: M LAB 06:51
DX: I73.9 Peripheral vascular disease, unspecified (principal); Z13.1 Encounter for screening for diabetes mellitus; Z79.02 Long term (current) use of antithrombotics/antiplatelets

== ENCOUNTER → 2024-06-15 | Outpatient (CLI) | payer MEDICARE | LOC: M RAD 09:32 | PROVIDERS: ATTEND Internal Medicine Pulmonary Disease | DX: Z12.2 Encounter for screening for malignant neoplasm of respiratory organs (principal); F17.218 Nicotine dependence, cigarettes, with other nicotine-induced disorders; J47.9 Bronchiectasis, uncomplicated; J43.9 Emphysema, unspecified; J84.10 Pulmonary fibrosis, unspecified; R91.8 Other nonspecific abnormal finding of lung field ==

== ENCOUNTER 2024-08-24 10:40 | Emergency (ER) | payer MEDICARE ==
[~2024-08-24] VITALS: Ht 160 cm; Wt 72.3 kg
[2024-08-24] MEDS: ACETAMINOPHEN 500 MG TAB PO ONE (13:27)
[2024-08-24 15:00] VITALS: BP 168/70; TEMP 98; O2SAT 97
== END 2024-08-24 15:21 | disposition home or self-care (01) ==
LOC: M ED 10:40
DX: M51.26 Other intervertebral disc displacement, lumbar region (principal); M51.34 Other intervertebral disc degeneration, thoracic region; M50.322 Other cervical disc degeneration at C5-C6 level; M43.12 Spondylolisthesis, cervical region; M25.78 Osteophyte, vertebrae; M85.88 Other specified disorders of bone density and structure, other site; J98.11 Atelectasis; I10 Essential (primary) hypertension; E78.5 Hyperlipidemia, unspecified; J44.9 Chronic obstructive pulmonary disease, unspecified; K22.70 Barrett's esophagus without dysplasia; E11.9 Type 2 diabetes mellitus without complications; Z79.52 Long term (current) use of systemic steroids; Z79.82 Long term (current) use of aspirin; Z79.02 Long term (current) use of antithrombotics/antiplatelets; Z79.899 Other long term (current) drug therapy; Z88.6 Allergy status to analgesic agent

== ENCOUNTER → 2024-09-08 | Outpatient (CLI) | payer MEDICARE ==
[2024-09-08 15:14] LABS: APPEARANCE, URINE CLEAR (CLEAR); BACTERIA, URINE AUTO NEGATIVE (NEGATIVE); BILIRUBIN, URINE AUTO NEGATIVE (NEGATIVE); BLOOD, URINE BLOOD NEGATIVE (NEGATIVE); COLOR, URINE YELLOW (YELLOW); GLUCOSE, URINE (UA) AUTO NEGATIVE (NEGATIVE); KETONE, URINE AUTO TRACE mg/dL (NEGATIVE); LEUKOCYTE ESTERASE, URINE AUTO NEGATIVE (NEGATIVE); NITRITE, URINE AUTO NEGATIVE (NEGATIVE); PROTEIN, URINE AUTO NEGATIVE (NEGATIVE); RBC, URINE AUTO 0 /HPF (0-3); SPECIFIC GRAVITY URINE AUTO 1.012 (1.002-1.035); SQUAMOUS EPITHELIAL CELL UR AU 1 /HPF (0-6); UROBILINOGEN, URINE AUTO 0.2 mg/dL (0.0-2.0); WBC, URINE AUTO 0 /HPF (0-3)
[2024-09-08 15:47] LABS: CALCIUM LEVEL 9.1 MG/DL (8.3-10.6); CREATININE FOR GFR 1.74 MG/DL (0.55-1.30); GLOMERULAR FILTRATION RATE 30.8 (>39); POTASSIUM SERUM 4.6 MMOL/L (3.5-5.1)
== END ==
LOC: M RAD 13:53
PROVIDERS: ATTEND Internal Medicine Cardiovascular Disease
DX: N28.9 Disorder of kidney and ureter, unspecified (principal)

== ENCOUNTER → 2024-09-19 | Outpatient (CLI) | payer MEDICARE ==
[~2024-09-19] MED LIST changes: +AMLO1TAB25 PO; +CALC600T57 PO; +INCR1INH INH; +METO1TAB87 PO
[2024-09-19 09:39] LABS: CREATININE FOR GFR 2.45 MG/DL (0.55-1.30); GLOMERULAR FILTRATION RATE 20.4 (>39)
== END ==
LOC: M LAB 08:39
PROVIDERS: ATTEND Internal Medicine Interventional Cardiology
DX: I20.0 Unstable angina (principal)

== ENCOUNTER 2024-09-27 17:14 | Inpatient (IN) | payer MEDICARE ==
[~2024-09-27] VITALS: Ht 158.8 cm; Wt 67.5 kg
[~2024-09-27 17:14] MED LIST changes: -AMLO1TAB25 PO; -CALC600T57 PO; -INCR1INH INH; -METO1TAB87 PO
[2024-09-27] MEDS ORDERED: GASTROGRAFIN SOLUTION 30ML PO SCH (18:30)
[2024-09-27] MEDS ORDERED: METO1TAB87 PO (18:56)
[2024-09-27] MEDS ORDERED: INCR1INH INH (18:56)
[2024-09-27] MEDS ORDERED: CALC600T57 PO (18:56)
[2024-09-27] MEDS ORDERED: AMLO1TAB25 PO (18:56)
[2024-09-27] MEDS ORDERED: HOME MED LIST COMPLETE! XX SCH (19:00)
[2024-09-27 19:05] LABS: BASO % 0.5 % (0.0-1.0); EOS # 0.1 10^3/uL (0.0-0.5); EOS % 1.9 % (0.0-3.0); HEMATOCRIT 34.7 % (36.0-47.0); HEMOGLOBIN 11.5 g/dl (12.0-15.5); LYMPH # 1.2 10^3/uL (1.5-5.0); LYMPH % 19.9 % (24.0-44.0); MEAN CORPUSCULAR HEMOGLOBIN 30.4 pg (27.0-33.0); MEAN CORPUSCULAR HGB CONC 33.1 g/dl (32.0-36.5); MEAN CORPUSCULAR VOLUME 91.8 fl (80.0-96.0); MONO # 0.5 10^3/uL (0.0-0.8); NEUTROPHILS # 4.3 10^3/uL (1.5-8.5); NEUTROPHILS % 69.4 % (36.0-66.0); PLATELET COUNT, AUTOMATED 189 10^3/uL (150-450); RED BLOOD COUNT 3.78 10^6/uL (4.00-5.40); WHITE BLOOD COUNT 6.2 10^3/uL (4.0-10.0)
[2024-09-27 19:21] LABS: INR 0.96; PARTIAL THROMBOPLASTIN TIME 30.8 SECONDS (24.8-34.2); PROTHROMBIN TIME 13.1 SECONDS (12.5-14.5)
[2024-09-27 19:29] LABS: ALBUMIN 4.3 G/DL (3.2-5.2); ALKALINE PHOSPHATASE 41 U/L (35-104); ALT/SGPT < 9 U/L (7.0-40); AST/SGOT 18 U/L (<34); BILIRUBIN,DIRECT 0.1 MG/DL (<0.4); BILIRUBIN,TOTAL 0.7 MG/DL (0.3-1.2); BLOOD UREA NITROGEN 43 MG/DL (9-23); CARBON DIOXIDE LEVEL 21 MMOL/L (20-31); CHLORIDE LEVEL 108 MMOL/L (98-107); CREATININE FOR GFR 3.03 MG/DL (0.55-1.30); GLOMERULAR FILTRATION RATE 15.8 (>39); GLUCOSE, FASTING 85 MG/DL (74-106); POTASSIUM SERUM 5.2 MMOL/L (3.5-5.1); SODIUM LEVEL 139 MMOL/L (136-145); TOTAL PROTEIN 6.9 G/DL (5.7-8.2)
[2024-09-27] MEDS ORDERED: NS (Normal Saline) 0.9% 1,000 ML IV SCH (19:35)
[2024-09-27] MEDS ORDERED: GLUCAGON INJ 1MG VIAL SC PRN (21:00)
[2024-09-27] MEDS ORDERED: IPRATROPIUM 0.5MG/ALBUTEROL 2.5MG INH SOL UD 3ML INH PRN (21:00)
[2024-09-27] MEDS ORDERED: ACETAMINOPHEN 325 MG TAB PO PRN (21:00)
[2024-09-27] MEDS ORDERED: GLUCOSE 4 GM CHEW PO PRN (21:00)
[2024-09-27] MEDS ORDERED: ALBUTEROL 90 MCG/ACT 8GM HFA INHALER INH PRN (21:00)
[2024-09-27] MEDS ORDERED: DEXTROSE 50% 50ML SYRINGE IV PRN (21:00)
[2024-09-27] MEDS: INSULIN LISPRO (NovoLOG) PER UNIT SC SCH (21:37)
[2024-09-27] MEDS: NS (Normal Saline) 0.9% 1,000 ML IV SCH (21:39)
[2024-09-27] MEDS: HumuLIN R (REGULAR) INSULIN (NovoLIN R) **100U/ML** PER UNIT IV ONE (21:42)
[2024-09-27] MEDS: CALCIUM GLUCONATE 1,000 MG in DEXTROSE 5% (D5W) MINI-BAG PLU 100 ML IV ONE (21:42)
[2024-09-27] MEDS: DEXTROSE 50% 50ML SYRINGE IV STA (21:42)
[2024-09-27] MEDS: NS 500 ML IV ONE (21:45)
[2024-09-27] MEDS: METOPROLOL TART 25 MG TABLET PO SCH (22:51)
[2024-09-27] MEDS: ATORVASTATIN 20 MG TAB PO SCH (22:51)
[2024-09-27] MEDS: DOCUSATE SODIUM 100MG CAPSULE PO SCH (22:52)
[2024-09-27 23:00] VITALS: BP 124/87; TEMP 97.2; O2SAT 97
[2024-09-27 23:34] LABS: CALCIUM LEVEL 9.5 MG/DL (8.3-10.6); CREATININE FOR GFR 2.77 MG/DL (0.55-1.30); GLOMERULAR FILTRATION RATE 17.6 (>39); MAGNESIUM LEVEL 1.6 MG/DL (1.8-2.4); POTASSIUM SERUM 4.6 MMOL/L (3.5-5.1)
[2024-09-28] VITALS (8 sets, daily range): BP systolic 125–135; BP diastolic 77–84; TEMP 97–97.5; O2SAT 65–98
[2024-09-28 06:20] LABS: HEMATOCRIT 31.6 % (36.0-47.0); HEMOGLOBIN 10.4 g/dl (12.0-15.5); MEAN CORPUSCULAR HEMOGLOBIN 30.1 pg (27.0-33.0); MEAN CORPUSCULAR HGB CONC 32.9 g/dl (32.0-36.5); MEAN CORPUSCULAR VOLUME 91.3 fl (80.0-96.0); PLATELET COUNT, AUTOMATED 156 10^3/uL (150-450); RED BLOOD COUNT 3.46 10^6/uL (4.00-5.40); WHITE BLOOD COUNT 5.1 10^3/uL (4.0-10.0)
[2024-09-28 06:52] LABS: ALBUMIN 3.5 G/DL (3.2-5.2); ALKALINE PHOSPHATASE 35 U/L (35-104); ALT/SGPT < 9 U/L (7.0-40); AST/SGOT 9 U/L (<34); BILIRUBIN,TOTAL 0.7 MG/DL (0.3-1.2); BLOOD UREA NITROGEN 36 MG/DL (9-23); CALCIUM LEVEL 9.4 MG/DL (8.3-10.6); CARBON DIOXIDE LEVEL 20 MMOL/L (20-31); CHLORIDE LEVEL 115 MMOL/L (98-107); CREATININE FOR GFR 2.26 MG/DL (0.55-1.30); GLOMERULAR FILTRATION RATE 22.5 (>39); GLUCOSE, FASTING 87 MG/DL (74-106); MAGNESIUM LEVEL 1.6 MG/DL (1.8-2.4); POTASSIUM SERUM 4.8 MMOL/L (3.5-5.1); SODIUM LEVEL 144 MMOL/L (136-145); TOTAL PROTEIN 5.7 G/DL (5.7-8.2)
[2024-09-28] MEDS: INSULIN LISPRO (NovoLOG) PER UNIT SC SCH (07:30)
[2024-09-28] MEDS: SYMBICORT 160/4.5MCG INHALER 6GM INH SCH (08:24)
[2024-09-28] MEDS: ASCORBIC ACID 250 MG TAB PO SCH (09:01)
[2024-09-28] MEDS: PANTOPRAZOLE 40MG TAB PO SCH (09:01)
[2024-09-28] MEDS: ASPIRIN 81MG ENTERIC TABLET PO SCH (09:01)
[2024-09-28] MEDS: VITAMIN D 1,000 INTERNATIONAL UNITS TABLET PO SCH (09:01)
[2024-09-28] MEDS: CLOPIDOGREL 75 MG TAB PO SCH (09:01)
[2024-09-28] MEDS: HEPARIN SOD 5000UNITS/ML 1ML VIAL/SYRINGE SC SCH (09:02)
[2024-09-28] MEDS: MAG SULF 1GM/100ML (MAG RUN) 1 GM in IV 1 EA IV SCH (09:37)
[2024-09-28 14:59] LABS: APPEARANCE, URINE CLEAR (CLEAR); BACTERIA, URINE AUTO NEGATIVE (NEGATIVE); BILIRUBIN, URINE AUTO NEGATIVE (NEGATIVE); BLOOD, URINE BLOOD NEGATIVE (NEGATIVE); COLOR, URINE STRAW (YELLOW); GLUCOSE, URINE (UA) AUTO NEGATIVE (NEGATIVE); KETONE, URINE AUTO NEGATIVE (NEGATIVE); LEUKOCYTE ESTERASE, URINE AUTO NEGATIVE (NEGATIVE); MUCUS, URINE SMALL (NEGATIVE); NITRITE, URINE AUTO NEGATIVE (NEGATIVE); PROTEIN, URINE AUTO NEGATIVE (NEGATIVE); RBC, URINE AUTO 0 /HPF (0-3); SPECIFIC GRAVITY URINE AUTO 1.006 (1.002-1.035); SQUAMOUS EPITHELIAL CELL UR AU 1 /HPF (0-6); UROBILINOGEN, URINE AUTO 0.2 mg/dL (0.0-2.0); WBC, URINE AUTO 0 /HPF (0-3)
[2024-09-29] VITALS (7 sets, daily range): BP systolic 121–132; BP diastolic 68–76; TEMP 97–97.5; O2SAT 95–100
[2024-09-29 06:50] LABS: PERCENT SATURATION 29.2 % (13.2-45.0)
[2024-09-29 06:56] LABS: CALCIUM LEVEL 8.1 MG/DL (8.3-10.6); CREATININE FOR GFR 1.61 MG/DL (0.55-1.30); GLOMERULAR FILTRATION RATE 33.8 (>39); MAGNESIUM LEVEL 1.9 MG/DL (1.8-2.4)
[2024-09-29 07:30] LABS: HEMOGLOBIN A1c 5.4 % (4.0-6.0)
== END 2024-09-29 16:38 | disposition home or self-care (01) | DRG 684 ==
LOC: M ED 17:14 → M ED INP 21:00 → M MSPAV 22:34 → OBSVTOIN 09-28 15:23
PROVIDERS: ADMIT Family Medicine; ATTEND Student in an Organized Health Care Education/Training Program
DX: N17.9 Acute kidney failure, unspecified (principal); N18.30 Chronic kidney disease, stage 3 unspecified; E11.22 Type 2 diabetes mellitus with diabetic chronic kidney disease; K21.9 Gastro-esophageal reflux disease without esophagitis; I12.9 Hypertensive chronic kidney disease with stage 1 through stage 4 chronic kidney disease, or unspecified chronic kidney disease; J45.909 Unspecified asthma, uncomplicated; D63.8 Anemia in other chronic diseases classified elsewhere; E78.5 Hyperlipidemia, unspecified; J44.9 Chronic obstructive pulmonary disease, unspecified; E11.51 Type 2 diabetes mellitus with diabetic peripheral angiopathy without gangrene; I25.10 Atherosclerotic heart disease of native coronary artery without angina pectoris; K22.70 Barrett's esophagus without dysplasia; Z98.42 Cataract extraction status, left eye; M81.0 Age-related osteoporosis without current pathological fracture; F17.200 Nicotine dependence, unspecified, uncomplicated; Z88.8 Allergy status to other drugs, medicaments and biological substances; Z79.899 Other long term (current) drug therapy; Z79.52 Long term (current) use of systemic steroids

== ENCOUNTER → 2024-09-27 | Outpatient (CLI) | payer MEDICARE ==
[2024-09-27 11:08] LABS: APPEARANCE, URINE CLOUDY (CLEAR); BACTERIA, URINE AUTO 1+ (NEGATIVE); BILIRUBIN, URINE AUTO NEGATIVE (NEGATIVE); BLOOD, URINE BLOOD NEGATIVE (NEGATIVE); COLOR, URINE YELLOW (YELLOW); GLUCOSE, URINE (UA) AUTO NEGATIVE (NEGATIVE); KETONE, URINE AUTO TRACE mg/dL (NEGATIVE); LEUKOCYTE ESTERASE, URINE AUTO NEGATIVE (NEGATIVE); NITRITE, URINE AUTO NEGATIVE (NEGATIVE); PROTEIN, URINE AUTO 2+ mg/dL (NEGATIVE); RBC, URINE AUTO 3 /HPF (0-3); SPECIFIC GRAVITY URINE AUTO 1.018 (1.002-1.035); SQUAMOUS EPITHELIAL CELL UR AU 8 /HPF (0-6); WBC, URINE AUTO 3 /HPF (0-3)
[2024-09-27 11:27] LABS: CALCIUM LEVEL 10.6 MG/DL (8.3-10.6); CREATININE FOR GFR 3.2 MG/DL (0.55-1.30); GLOMERULAR FILTRATION RATE 14.8 (>39); POTASSIUM SERUM 5.2 MMOL/L (3.5-5.1)
== END ==
LOC: M LAB 10:32
PROVIDERS: ATTEND Internal Medicine Cardiovascular Disease
DX: N28.9 Disorder of kidney and ureter, unspecified (principal)

== ENCOUNTER → 2024-11-22 | Outpatient (REF) | payer MEDICARE ==
[~2024-11-22] MED LIST changes: +AMLO1TAB25 PO; +CALC600T57 PO; +INCR1INH INH; +METO1TAB87 PO
== END ==
LOC: M SFHCPLAZ 20:41
PROVIDERS: ATTEND Student in an Organized Health Care Education/Training Program
DX: R63.4 Abnormal weight loss (principal); Z53.9 Procedure and treatment not carried out, unspecified reason

== ENCOUNTER → 2024-12-02 | Outpatient (CLI) | payer MEDICARE ==
[2024-12-02 11:01] LABS: PLATELET COUNT, AUTOMATED 259 10^3/uL (150-450)
== END ==
LOC: M PLALAB 07:30
DX: R63.4 Abnormal weight loss (principal)

== ENCOUNTER → 2024-12-02 | Outpatient (CLI) | payer MEDICARE | LOC: M WHC 12:37 | DX: Z12.31 Encounter for screening mammogram for malignant neoplasm of breast (principal); Z13.820 Encounter for screening for osteoporosis; R92.323 Mammographic fibroglandular density, bilateral breasts; M85.851 Other specified disorders of bone density and structure, right thigh; M85.852 Other specified disorders of bone density and structure, left thigh ==

== ENCOUNTER → 2024-12-05 | Outpatient (REF) | payer MEDICARE | LOC: M SFHCPLAZ 08:34 | DX: E11.9 Type 2 diabetes mellitus without complications (principal) ==

== ENCOUNTER → 2024-12-06 | Outpatient (CLI) | payer MEDICARE ==
[2024-12-06 10:13] LABS: ESTIMATED AVERAGE GLUCOSE 103.0 MG/DL (60-110)
== END ==
LOC: M LAB 08:39
DX: E11.9 Type 2 diabetes mellitus without complications (principal)

== ENCOUNTER → 2024-12-12 | Outpatient (CLI) | payer MEDICARE ==
[~2024-12-12] MED LIST changes: +PROHANCE 279.3MG/ML 15ML VIAL ONE; +PROHANCE 279.3MG/ML 5ML VIAL ONE
== END ==
LOC: M PLAIMG 10:22
PROVIDERS: ATTEND Surgery Vascular Surgery
DX: I65.23 Occlusion and stenosis of bilateral carotid arteries (principal); I65.02 Occlusion and stenosis of left vertebral artery
CPT/HCPCS: 70544; 70549; A9576

== ENCOUNTER → 2025-01-05 | Outpatient (CLI) | payer MEDICARE ==
[~2025-01-05] MED LIST changes: +LABE20TAB PO; +LINZ145C PO; +LORA-930 PO; +NITR0.4S14 SL; +POLY1POW38 PO; -PROHANCE 279.3MG/ML 5ML VIAL ONE; +TRIA37.5 PO
== END ==
LOC: M PLAIMG 10:18
PROVIDERS: ATTEND Internal Medicine Gastroenterology
DX: R63.4 Abnormal weight loss (principal); R10.84 Generalized abdominal pain; I74.09 Other arterial embolism and thrombosis of abdominal aorta; Z95.820 Peripheral vascular angioplasty status with implants and grafts
CPT/HCPCS: A9576; C8902

== ENCOUNTER 2025-01-09 07:16 | Observation (INO) | payer MEDICARE ==
[~2025-01-09] VITALS: Ht 157.5 cm; Wt 61.9 kg
[~2025-01-09 07:16] MED LIST changes: -LABE20TAB PO; -LINZ145C PO; -LORA-930 PO; -NITR0.4S14 SL; -POLY1POW38 PO; -PROHANCE 279.3MG/ML 15ML VIAL ONE; -TRIA37.5 PO
[2025-01-09] MEDS: MAGNESIUM CITRATE 300 ML BTL PO ONE ×2 (09:45→13:55)
[2025-01-09] MEDS: FLEET ENEMA PR SCH (12:25)
[2025-01-09 14:25] LABS: BASO # 0.0 10^3/uL (0.0-0.2); BASO % 0.2 % (0.0-1.0); EOS # 0.1 10^3/uL (0.0-0.5); EOS % 0.8 % (0.0-3.0); LYMPH # 0.5 10^3/uL (1.5-5.0); LYMPH % 3.9 % (24.0-44.0); MONO # 0.6 10^3/uL (0.0-0.8); MONO % 4.7 % (2.0-8.0); NEUTROPHILS # 11.7 10^3/uL (1.5-8.5); NEUTROPHILS % 90.1 % (36.0-66.0); PLATELET COUNT, AUTOMATED 237 10^3/uL (150-450)
[2025-01-09 14:31] LABS: ERYTHROCYTE SEDIMENTATION RATE 55 mm/hr (0-30)
[2025-01-09 14:57] LABS: ALT/SGPT 27.0 U/L (7.0-40); AST/SGOT 26.0 U/L (<34); C REACTIVE PROTEIN QUANTITATIV 2.48 MG/DL (<1.0); CALCIUM LEVEL 9.4 MG/DL (8.3-10.6); CARBON DIOXIDE LEVEL 22.0 MMOL/L (20-31); CHLORIDE LEVEL 106.0 MMOL/L (98-107); CREATININE FOR GFR 1.03 MG/DL (0.55-1.30); GLOMERULAR FILTRATION RATE 57.8 (>39); POTASSIUM SERUM 4.4 MMOL/L (3.5-5.1); SODIUM LEVEL 140.0 MMOL/L (136-145)
[2025-01-09] MEDS ORDERED: ISOVUE-370 76% 100 ML VIAL As Ordered ONE (15:51)
[2025-01-09] MEDS ORDERED: MAALOX 30 ML SUSP *UDC PO PRN (19:10)
[2025-01-09] MEDS ORDERED: MOM 30 ML SUSPENSION UDC PO PRN (19:10)
[2025-01-09] MEDS ORDERED: LABE20TAB PO (19:36)
[2025-01-09] MEDS ORDERED: LINZ145C PO (19:36)
[2025-01-09] MEDS ORDERED: POLY1POW38 PO (19:39)
[2025-01-09] MEDS ORDERED: LORA-930 PO (19:39)
[2025-01-09] MEDS ORDERED: TRIA37.5 PO (19:39)
[2025-01-09] MEDS ORDERED: NITR0.4S14 SL (19:39)
[2025-01-09] MEDS ORDERED: HOME MED LIST COMPLETE! XX SCH (19:40)
[2025-01-09] MEDS ORDERED: FLEET OIL RETENTION ENEMA PR PRN (19:40)
[2025-01-09] MEDS: LACTULOSE 20 GM/30 ML SYRUP UDC PO ONE (20:04)
[2025-01-09] MEDS: DOXYCYCLINE HYCLATE 100 MG TABLET PO SCH (20:04)
[2025-01-09] MEDS ORDERED: IPRATROPIUM 0.5 MG/ALBUTEROL 2.5 MG INH SOL UD 3 ML INH PRN (20:10)
[2025-01-09] MEDS ORDERED: ALBUTEROL 90 MCG/ACT 8 GM HFA INHALER INH PRN (20:10)
[2025-01-09] MEDS ORDERED: DEXTROSE 50% 50 ML SYRINGE IV PRN (20:25)
[2025-01-09] MEDS ORDERED: GLUCOSE 4 GM CHEW PO PRN (20:25)
[2025-01-09] MEDS ORDERED: GLUCAGON INJ 1 MG VIAL SC PRN (20:25)
[2025-01-09 20:50] VITALS: BP 117/70
[2025-01-09] MEDS: LABETALOL 200 MG TAB PO SCH (20:50)
[2025-01-09] MEDS: INSULIN LISPRO (NovoLOG) PER UNIT SC SCH (20:50)
[2025-01-09] MEDS: ATORVASTATIN 20 MG TAB PO SCH (20:58)
[2025-01-09] MEDS: cefTRIAXone SOD 2 GM in DEXTROSE 5% (D5W) ADV/MINI-BAG 50 ML IV SCH (20:58)
[2025-01-10 04:47] VITALS: BP 121/63; TEMP 98.1; O2SAT 95
[2025-01-10] MEDS: ACETAMINOPHEN 325 MG TAB PO PRN (05:30)
[2025-01-10 06:35] LABS: CALCIUM LEVEL 8.8 MG/DL (8.3-10.6); CARBON DIOXIDE LEVEL 23.0 MMOL/L (20-31); CHLORIDE LEVEL 111.0 MMOL/L (98-107); CREATININE FOR GFR 1.01 MG/DL (0.55-1.30); GLOMERULAR FILTRATION RATE 59.2 (>39); MAGNESIUM LEVEL 2.5 MG/DL (1.8-2.4); POTASSIUM SERUM 4.2 MMOL/L (3.5-5.1); SODIUM LEVEL 142.0 MMOL/L (136-145)
[2025-01-10] MEDS: INSULIN LISPRO (NovoLOG) PER UNIT SC SCH (07:30)
[2025-01-10 07:58] VITALS: BP 126/59; TEMP 98.3; O2SAT 95
[2025-01-10] MEDS: TIOTROPIUM BROM 2.5MCG/ACTUATION 4GM INH INH SCH (08:50)
[2025-01-10] MEDS: SYMBICORT 160/4.5MCG INHALER 6GM INH SCH (08:50)
[2025-01-10] MEDS: ENOXAPARIN 30 MG/0.3 ML SYRINGE (J1650 PER 10MG) SC SCH (08:56)
[2025-01-10] MEDS: ASPIRIN 81 MG ENTERIC TABLET PO SCH (08:58)
[2025-01-10] MEDS: LORATADINE 10 MG TAB PO SCH (08:58)
[2025-01-10] MEDS: ASCORBIC ACID 250 MG TAB PO SCH (08:58)
[2025-01-10] MEDS: LACTULOSE 20 GM/30 ML SYRUP UDC PO SCH (08:58)
[2025-01-10] MEDS: CLOPIDOGREL 75 MG TAB PO SCH (08:58)
[2025-01-10] MEDS: PANTOPRAZOLE 40MG TAB PO SCH (08:58)
[2025-01-10] MEDS: VITAMIN D 1,000 INTERNATIONAL UNITS TABLET PO SCH (08:59)
[2025-01-10] MEDS ORDERED: TRIAMTERENE/hydroCHLOROthiazide 37.5/25 MG CAPSULE PO SCH (09:00)
[2025-01-10] MEDS ORDERED: amLODIPine 10 MG TAB PO SCH (18:00)
[2025-01-13 02:32] LABS: URINE STREP PNEUMONIAE ANTIGEN Not Detected (Not Detected)
[2025-01-15 16:02] LABS: MYCOPLASMA PNEUMONIAE IGG 2.51 (<=0.90); MYCOPLASMA PNEUMONIAE IGM 180.0 U/mL (<770)
== END 2025-01-10 12:32 | disposition home or self-care (01) ==
LOC: M ED 08:15 → M ED INP 19:06 → INTOOBSV 19:06 → M PCU 01-10 04:45
PROVIDERS: ADMIT Student in an Organized Health Care Education/Training Program; ATTEND Student in an Organized Health Care Education/Training Program
DX: K52.89 Other specified noninfective gastroenteritis and colitis (principal); K56.41 Fecal impaction; G45.8 Other transient cerebral ischemic attacks and related syndromes; I77.1 Stricture of artery; I70.8 Atherosclerosis of other arteries; M81.0 Age-related osteoporosis without current pathological fracture; E11.9 Type 2 diabetes mellitus without complications; J44.9 Chronic obstructive pulmonary disease, unspecified; N18.30 Chronic kidney disease, stage 3 unspecified; I10 Essential (primary) hypertension; E78.5 Hyperlipidemia, unspecified; I25.10 Atherosclerotic heart disease of native coronary artery without angina pectoris; Z98.61 Coronary angioplasty status; K22.70 Barrett's esophagus without dysplasia; Z79.82 Long term (current) use of aspirin; Z79.899 Other long term (current) drug therapy; F17.210 Nicotine dependence, cigarettes, uncomplicated
CPT/HCPCS: 36415; 74018; 74177; 80048; 80053; 83605; 83735; 84145; 85025; 85652; 86140; 86738; 87449; 87641; 87899; 94640; 96365; 96372; 97161; 99285; G0378; J0696; J1650; Q9967

== ENCOUNTER → 2025-01-25 | Outpatient (REF) | payer MEDICARE ==
[~2025-01-25] MED LIST changes: +LABE20TAB PO; +LINZ145C PO; +LORA-930 PO; +NITR0.4S14 SL; +POLY1POW38 PO; +TRIA37.5 PO
== END ==
LOC: M LAB REF 13:18
PROVIDERS: ATTEND Physician Assistant
DX: J44.9 Chronic obstructive pulmonary disease, unspecified (principal)

== ENCOUNTER → 2025-04-10 | Outpatient (CLI) | payer MEDICARE | LOC: M RAD 12:28 | DX: F17.200 Nicotine dependence, unspecified, uncomplicated (principal); Z87.891 Personal history of nicotine dependence ==

== ENCOUNTER → 2025-04-14 | Outpatient (REF) | payer MEDICARE | LOC: M SFHCPLAZ 21:28 | PROVIDERS: ATTEND Family Medicine | DX: Z53.9 Procedure and treatment not carried out, unspecified reason (principal) ==

== ENCOUNTER 2025-04-22 17:44 | Emergency (ER) | payer MEDICARE ==
[~2025-04-22] VITALS: Ht 157.5 cm; Wt 60.2 kg
[2025-04-22 20:19] VITALS: BP 130/60; TEMP 98.1; O2SAT 97
== END 2025-04-22 20:29 | disposition home or self-care (01) ==
LOC: M ED 17:44
DX: S20.211A Contusion of right front wall of thorax, initial encounter (principal); M79.662 Pain in left lower leg; W01.0XXA Fall on same level from slipping, tripping and stumbling without subsequent striking against object, initial encounter; Y92.9 Unspecified place or not applicable; Y93.9 Activity, unspecified; Y99.9 Unspecified external cause status; I25.10 Atherosclerotic heart disease of native coronary artery without angina pectoris; J44.9 Chronic obstructive pulmonary disease, unspecified; Z95.820 Peripheral vascular angioplasty status with implants and grafts; F17.200 Nicotine dependence, unspecified, uncomplicated; Z88.8 Allergy status to other drugs, medicaments and biological substances; Z79.899 Other long term (current) drug therapy; Z79.82 Long term (current) use of aspirin

== ENCOUNTER 2025-05-02 12:41 | Emergency (ER) | payer MEDICARE ==
[~2025-05-02] VITALS: Ht 157.5 cm; Wt 60.7 kg
[2025-05-02 12:45] VITALS: BP 134/69; TEMP 98.2; O2SAT 99
[2025-05-02] MEDS ORDERED: HYDR-3713 PO (16:16)
== END 2025-05-02 16:30 | disposition home or self-care (01) ==
LOC: M ED 12:41
DX: S20.211A Contusion of right front wall of thorax, initial encounter (principal); W01.198A Fall on same level from slipping, tripping and stumbling with subsequent striking against other object, initial encounter; I70.0 Atherosclerosis of aorta; J98.11 Atelectasis; I10 Essential (primary) hypertension; E11.9 Type 2 diabetes mellitus without complications; K21.9 Gastro-esophageal reflux disease without esophagitis; Z79.1 Long term (current) use of non-steroidal anti-inflammatories (NSAID); Z79.52 Long term (current) use of systemic steroids; Z79.899 Other long term (current) drug therapy; Z79.82 Long term (current) use of aspirin; Z79.02 Long term (current) use of antithrombotics/antiplatelets; Z88.6 Allergy status to analgesic agent; Y92.9 Unspecified place or not applicable; Y93.89 Activity, other specified; Y99.9 Unspecified external cause status